=== PATIENT | female | born 1980 | race Caucasian/White ===

== ENCOUNTER 2025-03-11 01:04 | Emergency (ER) | payer OTHER, SELFPAY ==
--- OUTSIDE RECORDS SUMMARY | 2025-03-11 01:07 | XMS_ITS | Clinical Summary ---
Author Organization [facility] Address [address] [place] [id number] Care Team Providers Care Senior Mobile Application Developer Name Role Phone Unknown, Doctor Unavailable Unavailable Sera Richmond MD Primary Care Provide r Allergies Active Allergy Reactions Criticality Noted Date Comments Nsaids (Non-Steroidal Anti-I nflammatory Drug) Anaphylaxis High 08/12/2015 Shellfish Containing Products Anaphylaxis High 02/19 Medications SUMAtriptan (IMITREX) 100 mg tabletIndication s:Migraine without status migrainosus, not intractable, unspecified migraine type Take 1 Tablet (100 mg) by mouth every 2 hours if needed for Migraine. Give at minimum 2hrs apart. Max Dose: 200mg per 24hrs. 9 Tablet 11 4 Active Emgality Pen 120 mg/mL pen INJECT INJECT 120 MG MONTHLY. 4 Active albuterol HFA (PRO-AIR; VENTOLIN; PROVENTIL) 90 mcg/actuation inhalerIndicatio ns:Acute cough,Wheezing Inhale 1-2 Puffs by mouth every 4 hours while awake. 1 Each 4 Active amitriptyline 25 mg tabletIndication s:Migraine without aura and with status migrainosus, not intractable TAKE 1 TABLET BY MOUTH AT BEDTIME 90 Tablet 1 5 Active ondansetron (ZOFRAN) 8 mg tabletIndication s:Obesity (BMI 30.0-34.9) Take 0.5-1 Tablets (4-8 mg) by mouth every 8 hours if needed for Nausea/Vomiting. 30 Tablet 5 Active semaglutide (weight loss) (Wegovy) 0.5 mg/0.5 mL subcutaneous penIndications:O besity (BMI 30.0-34.9) Inject 0.5 mg subcutaneous once weekly. 6 mL 5 Active Active Problems Problem Noted Date Diagnosed Date ASCUS of cervix with negative high risk HPV 10/19 Overview (11/07/2022): 09/2022 ASCUS/ HPV negative Plan: pap/hpv due 09/2025 Allergic rhinitis, cause unspecified 08/01/2007 Overview (08/01/2007): cats, horses, hay, birch trees, fake grass, some fruit, Resolved Problems Problem Noted Date Diagnosed Date Resolved Date , supervision, high -risk, third trimester 01/08/2019 11/19/2023 Decreased movement 09/19/2018 Rh negative state in antepartum period 08/28/2018 11/19/2023 Overview (01/16/2019): Estimated Date of Delivery: None noted. No LMP recorded. Last Tdap- 12/04/2018 Last Flu vaccine- 11/20/2018 Glucose (GTT) result- Component Latest Ref Rng & Units 10/16/2018 GLUCOSE,GESTATIONAL 65 - 139 mg/dL 87 Component Latest Ref Rng & Units 01/08/2019 HEMOGLOBIN 12.0 - 16.0 g/dL 9.6 (L) MCV 80 - 100 fL 86 Culture No Group B Streptococcus isolated. Allergies Allergen Reactions Nsaids (Non-Steroidal Anti-Inflammatory Drug) Anaphylaxis Shellfish Containing Products Anaphylaxis Obstetric History T1 L1 SAB0 TAB0 Ectopic0 Multiple0 Live Births1 # Outcome Date GA Lbr Ric/2nd Weight Sex Delivery Anes PTL Lv 2 1 Term 10/17/16 41w1d M Vag AUDREY Create lab flowsheet for OB labs- Component Latest Ref Rng & Units 06/04/2018 06/04/2018 06/04/2018 3:33 PM 3:33 PM 3:33 PM ANTIBODY SCREEN Negative Negative SPECIMEN EXPIRATION DATE/TIME 06/07/18 23:59 HEMOGLOBIN 12.0 - 16.0 g/dL 12.1 MCV 80 - 100 fL 86 RUBELLA IGG ANTIBODY Positive 4.53 HEMOGLOBIN A1C SCREENING <6.4 % 4.7 ABORH A Rh Negative HBSAG Nonreactive Nonreactive HEPATITIS C ANTIBODY Non-Reactive Non-Reactive HIV-1/HIV-2 ANTIBODY Non-Reactive Non-Reactive TREPONEMA PALLIDUM Negative Negative Past Medical History: Diagnosis Date Allergic rhinitis, cause unspecified cats, horses, hay, birch trees, fake grass Chorioamnionitis, delivered, current hospitalization 10/18/2016 Chronic headaches gets migraines, not during Encounter for supervision of normal first in first trimester 02/20/2016 35 y.o. Family history blood clots - testing of family shows it is not genetic Quad screen BMI:# 26; Recommended weight gain: 25-35 lbs Recent foster parents - 3 kids, 6 mos, 6 year old boy, 9 year old girl Flu vaccine: current, September 2015 FOB: involved, Ousmane Restless legs syndrome (RLS) Third degree laceration of perineum during delivery, 10/18/2016 Vaginal delivery 10/17/2016 Past Surgical History: Procedure Laterality Date APPENDECTOMY TONSILLECTOMY VAGINAL DELIVERY 10/17/2016 No data on file. Problem List No episode was linked to this visit. PANCHO Kyle.....08/29/2018 8:10 AM Supervision of high-risk pre gnancy, second trimester 08/28/2018 01/08/2019 07/25/2018 08/28/2018 Overview (07/25/2018): Estimated Date of Delivery: 02/05/19 Patient's last menstrual period was 04/28/2018 (approximate). Last Tdap- 07/17/2016 Last Flu vaccine- 08/13/2016 Glucose (GTT) result- too early Allergies Allergen Reactions Nsaids (Non-Steroidal Anti-Inflammatory Drug) Anaphylaxis Shellfish Containing Products Anaphylaxis Obstetric History T1 L1 SAB0 TAB0 Ectopic0 Multiple0 Live Births1 # Outcome Date GA Lbr Ric/2nd Weight Sex Delivery Anes PTL Lv 2 Current 1 Term 10/17/16 41w1d M Vag AUDREY Create lab flowsheet for OB labs- Component Latest Ref Rng & Units 06/04/2018 06/04/2018 06/04/2018 3:33 PM 3:33 PM 3:33 PM ANTIBODY SCREEN Negative Negative SPECIMEN EXPIRATION DATE/TIME 06/07/18 23:59 HEMOGLOBIN 12.0 - 16.0 g/dL 12.1 MCV 80 - 100 fL 86 RUBELLA IGG ANTIBODY Positive 4.53 HEMOGLOBIN A1C SCREENING <6.4 % 4.7 ABORH A Rh Negative HBSAG Nonreactive Nonreactive HEPATITIS C ANTIBODY Non-Reactive Non-Reactive HIV-1/HIV-2 ANTIBODY Non-Reactive Non-Reactive TREPONEMA PALLIDUM Negative Negative Past Medical History: Diagnosis Date Allergic rhinitis, cause unspecified cats, horses, hay, birch trees, fake grass Chorioamnionitis, delivered, current hospitalization 10/18/2016 Chronic headaches gets migraines, not during Encounter for supervision of normal first in first trimester 02/20/2016 35 y.o. Family history blood clots - testing of family shows it is not genetic Quad screen BMI:# 26; Recommended weight gain: 25-35 lbs Recent foster parents - 3 kids, 6 mos, 6 year old boy, 9 year old girl Flu vaccine: current, September 2015 FOB: involved, Ousmane Restless legs syndrome (RLS) Third degree laceration of perineum during delivery, 10/18/2016 Vaginal delivery 10/17/2016 Past Surgical History: Procedure Laterality Date APPENDECTOMY TONSILLECTOMY VAGINAL DELIVERY 10/17/2016 No data on file. 2nd Problems (from 06/04/18 to present) No problems associated with this episode. PANCHO Kyle.....07/25/2018 8:33 AM Chorioamnionitis, delivered, current hospitalization 10/18/2016 01/27/2018 Third degree laceration of p erineum during delivery, 10/18/2016 01/27/2018 Vaginal delivery 10/17/2016 01/27/2018 Encounter for supervision of normal first in first trimester 02/20/2016 01/27/2018 Overview (04/23/2016): 35 y.o. Family history blood clots - testing of family shows it is not genetic Quad screen BMI:# 26; Recommended weight gain: 25-35 lbs Recent foster parents - 3 kids, 6 mos, 6 year old boy, 9 year old girl Flu vaccine: current, September 2015 FOB: involved, Ousmane Abdominal pain affecting 01/27/2018 Encounters Date Type Department Care Team Description 02/04/2025 [place] [facility] [place] [address] [place] [address] Betsy Dotson PA Refill Request 01/27/2025 2:20 PM CDT [place] [facility] [place] [address] [place] [address] Betsy Dotson PA Medication Management 01/27/2025 Travel 01/25/2025 Orders Only [facility] Scanner 1 scan: (1-Ord) NORAN 01/13/2025 12:03 PM COOPER APPRENTICE - 01/13/2025 1:54 PM [facility] Emergency [place] [address] [place] [address] Susie Cruz PA Scholz, Ryan Bensley, Right-sided chest pain (Primary Dx); Musculoskeletal chest pain; Pleuritic chest pain Discharge Disposition: Home Self Care 01/13/2025 Travel 01/13/2025 Nurse Triage [facility] [address] [place] [address] Sera Richmond MD Chest Pain from Last 3 Months Immunizations Immunization Administration Dates Next Due Influenza, IIV3 (Age 6-35 mos) 09/25/2015 Influenza, IIV4 11/20/2018,08/13/2016 Tdap 12/04/2018,07/17/2016 Family History Medical History Relation Name Comments Asthma Brother Other Father initial clot d/ t fall; recurrent thereafter; Stroke Father Cancer Maternal Aunt skin ca Cancer-breast Maternal Aunt x2 aunts Diabetes Maternal Grandfather Cancer Maternal Grandmother uterine Arthritis Mother Cancer Mother Thyroid Disease Mother low? Diabetes Paternal Grandfather Cancer Paternal Grandmother Diabetes Paternal Grandmother Genitourinary Disease Paternal Grandmother kidney stones Stroke Paternal Grandmother Good Health Sister Relation Name Status Comments Brother Alive Father Alive Maternal Aunt Maternal Grandfather Maternal Grandmother Mother Alive Paternal Aunt Paternal Grandfather Paternal Grandmother Sister Alive Son Alive Social History Tobacco Use Types Packs/Day Years Used Date Smoking Tobacco: Never Passive Smoke Exposure: Never Smokeless Tobacco: Never Tobacco Cessation:Counseling Given: Not Answered Alcohol Use Standard Drinks/Week Comments Yes 0 (1 standard drink = 0.6 oz pur e alcohol) occasionally PHQ-2 Answer Date Recorded PHQ-2 TOTAL SCORE 0 03/03/2024 Social Connections Answer Date Recorded Do you often feel lonely or isolated from those around you? 0 03/03/2024 Financial Resource Strain Answer Date R ecorded Difficulty of Paying Living Expenses 3 03/03/2024 Difficulty of Paying Living Expenses Not on file 03/03/2024 Food Insecurity Answer Date Recorded Do you worry your food will run out before you are able to buy more? 1 03/03/2024 Transportation Needs Answer Date Record ed Does lack of transportation keep you from medica l appointments? 1 03/03/2024 Does lack of transportation keep you from work, meetings or getting things that you need? 1 03/03/2024 Housing Stability Answer Date Recorded What is your housing situation today? 1 03/03/2024 Interpersonal Safety Answer Date Record ed Are you being hit, kicked, p ushed or yelled at (see row info)? No 01/13/2025 Interpersonal Safety Abuse 12 - 18 Not on file 01/13/2025 Interpersonal Safety Ambulatory Vulnerability No t on file 01/13/2025 Utilities Answer Date Recorded Do you have trouble paying f or utilities (for example, heat, electricity, water, phone)? 1 03/03/2024 Comments No Sex and Gender Information Value Date Recorded Sex Assigned at Not on file Legal Sex Female 7:22 AM COOPER APPRENTICE Gender Identity Not on file Sexual Orientation Not on file Occupation Industry Job Start Date Job End Date [employer] Not on file Not on file Not on file [employer] Not on file Not on file N ot on file Obstetrics History Para Term AB IAB SAB Ectopic Multiple Livin g Live Births 3 2 2 0 0 0 0 0 2 2 Date Outcome GA Total Labor Labor/2nd/3rd Weight Sex Type Anes PTL Audrey A1 A5 Name Clin 10/17 Term 41w 1d M Vag Living 01/27 Term 38w 5d 5.19 kg (11 lb 7 oz) M C-Sec tion Spinal N Living Last Filed Vital Signs Vital Sign Reading Time Taken Comments Blood Pressure 109/72 01/27/2025 2:22 PM CDT Pulse 77 01/27/2025 2:22 PM CDT Temperature 37 C (98.6 F) 01/13/2025 10:07 AM COOPER APPRENTICE Respiratory Rate 16 01/13/2025 10:07 AM COOPER APPRENTICE Oxygen Saturation 100% 01/13/2025 12:25 PM COOPER APPRENTICE Inhaled Oxygen Concentration - - Weight 76.2 kg (168 lb) 01/27/2025 2:22 PM CDT Height 162.6 cm (5' 4) 01/13/2025 10:07 AM COOPER APPRENTICE Body Mass Index 28.84 01/13/2025 10:07 AM COOPER APPRENTICE Plan of Treatment Health Maintenance Due Date Last Done Comments COVID-19 vaccine series ( season) 2024 Depression screening for age 12+ 03/03/2025 03/03/2024, 12/28/2022, 10/12/2022, Additional history exists Influenza Vaccine (Season Ended) 2025 11/20/2018, 08/13/2016, 09/25/2015 BMI (ht and wt on same day) for age 18+ 10/06/2025 10/06/2024, 11/19/2023, 08/09/2023, Additional history exists Pap test for age 21-65 10/12/2025 , 10/12/2022, 12/06/2016, Additional history exists Tetanus booster 12/04/2028 12/04/2018, 07/17/2016 HIV for age 15-65 Completed 06/04/2018, 02/20/2016 Hepatitis C screening for age 18-79 Completed 06/04/2018 Tdap Completed 12/04/2018, 07/17/2016 Pneumococcal series for age 6-49 Aged Out No longer eligible based on patient's age to complete this topic Procedures Procedure Name Priority Date/Time Associated Diagnosis Comments SCAN-ELECTROMYOGRAM EMG 01/25/2025 12:00 AM CDT XR CHEST 2 VIEWS PA AND LATERAL STAT 01/13/2025 1:24 PM COOPER APPRENTICE HEPATIC FUNCTION PANEL STAT 01/13/2025 12:31 PM COOPER APPRENTICE PRO-BNP STAT 01/13/2025 12:31 PM COOPER APPRENTICE D-DIMER,QUANTITATIV E STAT 01/13/2025 12:31 PM COOPER APPRENTICE TROPONIN T (HS) ACUTE W/2HR REFLEX STAT 01/13/2025 12:31 PM COOPER APPRENTICE BASIC METABOLIC PANEL STAT 01/13/2025 12:31 PM COOPER APPRENTICE CBC W PLT NO DIFF STAT 01/13/2025 12: 31 PM COOPER APPRENTICE EKG 12 LEAD STAT 01/13/2025 10:11 AM COOPER APPRENTICE HPV HIGH RISK Routine 10/12/2022 11:00 AM COOPER APPRENTICE Screening for cervical cancer ANTI HIV 1/2 Routine 06/04/2018 3:33 PM CDT Encounter for supervision of normal first in first trimester (HC) ANTI HCV Routine 06/04/2018 3:33 PM CDT Encounter for supervision of normal first in first trimester (HC) from Last 3 Months or Most Recently Relevant to Health Maintenance Results * SCAN-ELECTROMYOGRAM EMG (01/25/2025 12:00 AM CDT) us Scanner OTHER Final Result * XR CHEST 2 VIEWS PA AND LATERAL (01/13/2025 1:24 PM COOPER APPRENTICE) Anatomical Region Laterality Modality CHEST, THORAX, Lung, HEART Compu steff Radiography 01/13/2025 1:24 PM COOPER APPRENTICE Impressions 01/13/2025 1:29 PM COOPER APPRENTICE Negative chest. Lungs clear. Narrative 01/13/2025 1:29 PM COOPER APPRENTICE For Patients: As a result of the Century Cures Act, medical imaging exams and procedure reports are released immediately into your electronic medical record. You may view this report before your referring provider. If you have questions, please contact your health care provider. EXAM: XR CHEST 2 VIEWS PA AND LATERAL LOCATION: [facility] MEDICAL IMAGING DATE: 01/13/2025 INDICATION: SOB. Chest pain. COMPARISON: 11/23/2021 Procedure Note Darien Aaron MD - 01/13/2025 For Patients: As a result of the Cures Act, medical imagingexams and procedure reports are released immediately into your electronicmedical record. You may view this report before your referring provider.If you have questions, please contact your health care provider. EXAM: XR CHEST 2 VIEWS PA AND LATERAL LOCATION: [facility] MEDICAL IMAGING DATE: 01/13/2025 INDICATION: SOB. Chest pain. COMPARISON: 11/23/2021 IMPRESSION: Negative chest. Lungs clear. us Susie CHUNG GENERAL IMAGING Final R esult * TROPONIN T (HS) ACUTE W/2HR REFLEX (01/13/2025 12:31 PM COOPER APPRENTICE) TROPONIN T HS <6 6-10 ng/L ng/L 01/13/2025 1:16 PM COOPER APPRENTICE [facility] Blood BLOOD SPECIMEN / Unknown IV Start / Unknown 01/13/2025 12:31 PM COOPER APPRENTICE 01/13/2025 12:35 PM COOPER APPRENTICE [facility] LABORATORY - 01/13/2025 1:16 PM COOPER APPRENTICE hs-cTnT (Elecsys Troponin T Gen 5) concentration (s) above the sex-specific 99th percentile (16 ng/L or greater for males or 11 ng/L or greater for females) are indicative of myocardial injury. If initial hs-cTnT <=100 ng/L at presentation, a 0h/2h ABSOLUTE (ng/L) delta change (rising or falling) of >=10 ng/L suggests a significant change, whereas a 0h/2h delta change <=3 ng/L suggests no significant change. If initial hs-cTnT >100 ng/L at presentation, a 0h/2h/ RELATIVE (percent, %) delta change of 20% is suggested to distinguish patients with acute vs. chronic myocardial injury. There are multiple etiologies that can cause hs-cTnT increases above the 99th percentile (myocardial injury) other than acute myocardial infarction. Clinical context and careful clinical evaluation are critical for diagnosis and risk-stratification. The diagnosis of acute myocardial infarction requires a rising and/or falling pattern in hs-cTnT concentrations with at least one value above the sex-specific 99th percentile PLUS at least one of the following clinical criteria: ischemic symptoms, new or presumed new significant ST-T wave changes or new LBBB, development of pathological Q waves, imaging evidence of new loss of viable myocardium or new regional wall motion abnormality, or identification of intracoronary atherothrombosis or an acute angiographic culprit on coronary angiography. In appropriate low-risk patients with a non-ischemic electrocardiogram without active chest pain with a symptom onset >3-hours without recurrence, a single initial hs-cTnT<6 ng/L identifies patient with a very low risk in emergency department patient population. us Susie CHUNG CHEMISTRY Final R esult [facility] INTERNAL [facility] [address] [place] [address] * CBC W PLT NO DIFF (01/13/2025 12:31 PM [facility]) WHITE BLOOD COUNT 6.8 4.5 - 11.0 thou/cu mm 01/13/2025 12:39 PM [facility] RED BLOOD COUNT 4.96 4.00 - 5.20 mil/cu mm 01/13/2025 12:39 PM [facility] HEMOGLOBIN 14.0 12.0 - 16.0 g/dL 01/13/2025 12:39 PM [facility] HEMATOCRIT 40.3 33.0 - 51.0 % 01/13/2025 12:39 PM [facility] MCV 81 80 - 100 fL 01/13/2025 12:39 PM [facility] MCH 28.2 26.0 - 34.0 pg 01/13/2025 12:39 PM [facility] MCHC 34.7 32.0 - 36.0 g/dL 01/13/2025 12:39 PM [facility] RDW 13.2 11.5 - 15.5 % 01/13/2025 12:39 PM [facility] PLATELET COUNT 320 140 - 440 thou/cu mm 01/13/2025 12:39 PM [facility] MPV 9.9 6.5 - 11.0 fL 01/13/2025 12:39 PM COOPER APPRENTICE [facility] NRBC 0.0 % 01/13/2025 12:39 PM COOPER APPRENTICE [facility] ABS NRBC 0.0 thou /cu mm 01/13/2025 12:39 PM [facility] Blood BLOOD SPECIMEN / Unknown IV Start / Unknown 01/13/2025 12:31 PM COOPER APPRENTICE 01/13/2025 12:35 PM [facility] LABORATORY - 01/13/2025 12:39 PM COOPER APPRENTICE RN to order if patient presents with anterior chest pain, consistent with angina. Susie CHUNG HEMATOLOGY Final R esult Performing Organization Address City/[facility]/ZIP Co de Phone Number [facility] INTERNAL [facility] [id number] [place] [phone] * D-DIMER,QUANTITATIVE (01/13/2025 12:31 PM COOPER APPRENTICE) D-DIMER,QUANTI TATIVE 0.23 <=0.49 FEU mcg/mL 01/13/2025 12:46 PM [facility] Blood BLOOD SPECIMEN / Unknown IV Start / Unknown 01/13/2025 12:31 PM COOPER APPRENTICE 01/13/2025 12:35 PM [facility] LABORATORY - 01/13/2025 12:46 PM COOPER APPRENTICE The cut off value for exclusion of Deep Vein Thrombosis and / or Pulmonary Embolism is 0.50 FEU mcg/mL For patients greater than 50 years of age the upper limit is age dependent and was calculated with the formula: (PATIENT AGE x 0.01) FEU mcg/mL = Upper limit of normal range Susie CHUNG HEMATOLOGY Final R esult Performing Organization Address [facility]/ZIP Co de Phone Number [facility] SEND[facility] INTERNAL ZIP [id number] [place] [phone] * PRO-BNP (01/13/2025 12:31 PM COOPER APPRENTICE) PRO-BNP <36 <125 pg/mL 01/13/2025 1:16 PM [facility] Blood BLOOD SPECIMEN / Unknown IV Start / Unknown 01/13/2025 12:31 PM COOPER APPRENTICE 01/13/2025 12:35 PM COOPER APPRENTICE [facility] LABORATORY - 01/13/2025 1:16 PM COOPER APPRENTICE The following cut-points have been suggested for the use of proBNP for the diagnostic evaluation of heart failure (HF) in patient with acute dyspnea. Patients with eGFR >= 60 Diagnosis (rule in CHF) <50 Years Old 450 pg/mL 50 - 75 Years Old 900 pg/mL >75 Years Old 1800 pg/mL Exclusion (rule out CHF) Age Independent 300 pg/mL A cutoff of 1200 pg/mL for patients with an eGFR <60 yields a diagnostic sensitivity of 89% and specificity of 72% for acute congestive heart failure. us Susie CHUNG SEND OUTS Final R esult [facility] SENDOUT INTERNAL ZIP [id number] [place] [phone] * (ABNORMAL) HEPATIC FUNCTION PANEL (01/13/2025 12:31 PM COOPER APPRENTICE) ALBUMIN 4.7 4.0 - 4.9 g/dL 01/13/2025 1:16 PM [facility] PROTEIN,TOTAL 8.2(H) 6.0 - 8.0 g/dL 01/13/2025 1:16 PM [facility] BILIRUBIN,TOTAL 0.6 0.0 - 1.2 mg/dL 01/13/2025 1:16 PM [facility] BILIRUBIN,DIRECT 0.2 0.0 - 0.2 mg/dL 01/13/2025 1:16 PM [facility] BILIRUBIN,INDIRE CT 0.4 0.2 - 0.8 mg/dL 01/13/2025 1:16 PM [facility] ALK PHOSPHATASE 56 35 - 104 IU/L 01/13/2025 1:16 PM [facility] ALT (SGPT) 6(L) 10 - 35 IU/L 01/13/2025 1:16 PM [facility] AST (SGOT) 14 10 - 35 IU/L 01/13/2025 1:16 PM [facility] Blood BLOOD SPECIMEN / Unknown IV Start / Unknown 01/13/2025 12:31 PM COOPER APPRENTICE 01/13/2025 12:35 PM [facility] us Susie CHUNG CHEMISTRY Final R esult [facility] SENDOUT INTERNAL ZIP [id number] [place] [phone] * BASIC METABOLIC PANEL (01/13/2025 12:31 PM [facility]) SODIUM 137 136 - 145 mmol/L 01/13/2025 1:16 PM [facility] POTASSIUM 4.1 3.5 - 5.1 mmol/L 01/13/2025 1:16 PM [facility] CHLORIDE 101 98 - 107 mmol/L 01/13/2025 1:16 PM [facility] CO2,TOTAL 26 22 - 29 mmol/L 01/13/2025 1:16 PM [facility] ANION GAP 10 5 - 18 01/13/2025 1:16 PM [facility] GLUCOSE 99 70 - 99 mg/dL 01/13/2025 1:16 PM [facility] CALCIUM 9.6 8.8 - 10.4 mg/dL 01/13/2025 1:16 PM [facility] Comment: Reference ranges for this test were updated on 09/22/2024 to reflect our healthy population more accurately. Reference range changes are not retroactively applied to results, but previous results using the same methodology can be interpreted in the context of the new reference range. BUN 10 6 - 20 mg/dL 01/13/2025 1:16 PM [facility] CREATININE 0.70 0.50 - 0.90 mg/dL 01/13/2025 1:16 PM [facility] BUN/CREAT RATIO 14 10 - 20 1:16 PM COOPER APPRENTICE [facility] eGFR >90 >90 mL/min/1.7 3m2 01/13/2025 1:16 PM COOPER APPRENTICE [facility] Comment:As of 2022, eG FR is calculated by the CKD-EPI creatinine equation without race adjustment. eGFR can be influenced by muscle mass, exercise, and diet. The reported eGFR is an estimation only and is only applicable if the renal function is stable. Blood BLOOD SPECIMEN / Unknown IV Start / Unknown 01/13/2025 12:31 PM COOPER APPRENTICE 01/13/2025 12:35 PM COOPER APPRENTICE Susie CHUNG CHEMISTRY Final R esult Performing Organization Address City/[facility]/ZIP Co de Phone Number [facility] SENDOUT INTERNAL ZIP [id number] [place] [phone] * EKG 12 LEAD (01/13/2025 10:11 AM COOPER APPRENTICE) Interpretation Normal sinus rhythm Nonspecific T wave abnormality Abnormal ECG BEYOND NOW Ventricular Rate 82 BPM BEYOND NOW Atrial Rate 82 BPM BEYOND NOW P-R Interval 158 ms BEYOND NOW QRS Duration 74 ms BEYOND NOW QT 324 ms BEYOND NOW QTc 378 ms BEYOND NOW P [place] 48 degrees BEYOND NOW R [place] 10 degrees BEYOND NOW T Dan[place] 29 degrees BEYOND NOW 01/13/2025 10:1 1 AM COOPER APPRENTICE 01/14/2025 10:32 AM COOPER APPRENTICE Susie CHUNG EKG ORD Final R esult Performing Organization Address City/[facility]/ZIP Co de Phone Number BEYOND NOW [place], [place] * HPV HIGH RISK (10/12/2022 11:00 AM COOPER APPRENTICE) TYPE 16 Negative Negative 10/17/2022 11:08 AM COOPER APPRENTICE [facility] [facility] TYPE 18 Negative Negative 10/17/2022 11:08 AM COOPER APPRENTICE [facility] OTHER HIGH RISK TYPES Negative Negative 10/17/2022 11:08 AM COOPER APPRENTICE [facility] Other (Cervical) Non-Blood / Unknown 10/12/2022 11:00 AM COOPER APPRENTICE 10/15/2022 9:10 AM COOPER APPRENTICE Narrative [facility] - 10/17/2022 11:08 AM COOPER APPRENTICE HPV types 16, 18, 31, 33, 35, 39, 45, 51, 52, 56, 58, 59, 66 and 68 DNA were undetectable or below the pre-set threshold. Methodology: Rosario Jose Alfredo 4800 HPV Test Sera Richmond MD MICROBIOLOGY Final Result [facility] [address] [place] [address], [place] * ANTI HCV (06/04/2018 3:33 PM CDT) HEPATITIS C ANTIBODY Non-React tootie Non-React tootie 06/04/2018 9:01 PM CDT [facility] Comment:Antibodies to HCV no t detected; does not exclude the possibility of exposure to HCV. Blood BLOOD SPECIMEN / Unknown Venipuncture / Unknown 06/04/2018 3:33 PM CDT 06/04/2018 3:33 PM CDT Chacha CHUNG SEND OUTS Final R esult Performing Organization Address City/[facility]/ZIP Co de Phone Number [facility] [address] [place] [address], [place] * ANTI HIV 1/2 (06/04/2018 3:33 PM CDT) Pathologist [facility] HIV-1/HIV-2 ANTIBODY Non-Reacti ve Non-Reacti ve 06/04/2018 9:03 PM CDT [facility] Comment:HIV-1 p24 and HIV-1/ HIV-2 Ab not detected. Blood BLOOD SPECIMEN / Unknown Venipuncture / Unknown 06/04/2018 3:33 PM CDT 06/04/2018 3:33 PM CDT Chacha CHUNG SEND OUTS Final R esult [facility] [address] [place] [address], from Last 3 Months or Most Recently Relevant to Health Maintenance Insurance [employer] ELECT WC [employer] INS [employer] INS Advance Directives * Full Code (Latest Code Status on File) Date Activated Date Inactivated Comments 10/17/2016 11:45 AM 10/19/2016 2:24 PM * Full Code Date Activated Date Inactivated Comments 10/16/2016 5:58 PM 10/17/2016 11:45 AM * Full Code Date Activated Date Inactivated Comments 10/16/2016 9:40 AM 10/16/2016 5:58 PM * Full Code Date Activated Date Inactivated Comments 10/16/2016 8:50 AM 10/16/2016 9:40 AM * Full Code Date Activated Date Inactivated Comments 10/03/2016 11:02 PM 10/04/2016 3:03 AM Care Teams Senior Mobile Application Developer Relationship Specialty Start Date End Date Sera Richmond MD [address] [place] [address] PCP - General Family Practice 12/18/18 Unknown, Doctor . Unknown Physician Specialty 08/12/15
--- OUTSIDE RECORDS SUMMARY | 2025-03-11 01:08 | XMS_ITS | Clinical Summary ---
Author Organization [place] Address [address] [facility] 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 Name Role Phone No Ref-Primary, Physician Primary Care Provider Allergies Active Allergy Reactions Criticality Noted Date Comments Nsaids 01/27/2019 Shellfish-Derived Products Anaphylaxis High 01/28/20 19 Medications Ferrous Sulfate 324 (65 Fe) MG TBEC Active SUMAtriptan (IMITREX) 50 MG tablet Take 50 mg by mouth at onset of headache for migraine Active Vit-Fe Fumarate-FA ( MULTIVITAMIN W/IRON) 27-0.8 MG tablet Take 1 tablet by mouth daily Active oxyCODONE (ROXICODONE) 5 MG tabletIndication s: care following delivery Take 1-2 tablets (5-10 mg) by mouth every 3 hours as needed for moderate to severe pain 20 tablet 9 Active senna-docusate (SENOKOT-S/PERIC OLACE) 8.6-50 MG tabletIndication s: care following delivery Take 1 tablet by mouth 2 times daily as needed for constipation 60 tablet 9 Active Active Problems Problem Noted Date Diagnosed Date care following delivery 01/16 Immunizations Name Administration Dates Next Due Influenza (IIV3) PF 09/25/2015 Influenza Vaccine >6 months,quad, PF 08/13/2016 TDAP Vaccine (Boostrix) 12/04/2018,07/17/2016 Family History Medical History Relation Comments Cerebrovascular Disease Father BLOOD CL OTS Diabetes Maternal Grandfather Hyperlipidemia Maternal Grandfather Kidney Disease Maternal Grandfather Cancer Maternal Grandmother OVARIAN Cancer Mother SKIN Relation Status Comments Father Maternal Grandfather Maternal Grandmother Mother Social History Tobacco Use Types Packs/Day Years Used Date Smoking Tobacco: Never Smokeless Tobacco: Never Alcohol Use Standard Drinks/Week Comments No 0 (1 standard drink = 0.6 oz pur e alcohol) AUDIT-C Answer Date Recorded Frequency of Alcohol Consumption Never 01/27/2019 Average Number of Drinks Not on file 019 Frequency of Binge Drinking Not on file 01/16 [place] Depression Scale Answer Date Recorded [place] Depression Score 3 01/28/2019 Last EPDS Self Harm Result Not on file 01/28 Comments No Sex and Gender Information Value Date Recorded Sex Assigned at Not on file Legal Sex Female 2:26 PM CDT Gender Identity Not on file Sexual Orientation Not on file Last Filed Vital Signs Vital Sign Reading Time Taken Comments Blood Pressure 110/68 01/31/2019 8:05 AM CDT Pulse - - Temperature 36.7 C (98.1 F) 01/31/2019 8:05 AM CDT Respiratory Rate 18 01/31/2019 8:05 AM CDT Oxygen Saturation 97% 01/28/2019 7:57 AM CDT Inhaled Oxygen Concentration - - Weight - - Height - - Body Mass Index - - Plan of Treatment Not on file Insurance [place] [id number] [employer] Care Teams Bulb Farmworker Relationship Specialty Start Date End Date No Ref-Primary, Physician PCP - General 01/28/19
[2025-03-11 01:16] VITALS: BP 117/83; PULSE 74; RESP 18; TEMP 36.3; O2SAT 98; BMI 29.2
[2025-03-11 01:35] LABS: Bilirubin Urine Negative (Negative); Blood Urine Trace-intact (Negative); Color Urine Yellow (Yellow); Glucose Urine Negative (Negative); Ketones Urine Negative (Negative); Leukocyte Esterase Urine Negative (Negative); Nitrite Urine Negative (Negative); Protein Urine Negative (Negative); Urobilinogen Urine 0.2 (0.2-1.0)
[2025-03-11 01:37] LABS: Ur HCG Qualitative* Negative (Negative)
--- NOTE | 2025-03-11 01:37 | CRLHL7_ITS ---
For Patients: As a result of the Century Cures Act, medical imaging exams and procedure reports are released immediately into your electronic medical record. You may view this report before your referring provider. If you have questions, please contact your health care provider. INDICATION: Upper abdominal pain that radiates to the back off and on for approximately 1 week, nausea/vomiting. TECHNIQUE: CT abdomen and pelvis acquired with 83 cc Isovue 370 IV contrast. COMPARISON: None. FINDINGS: Lower chest: Unremarkable. Liver: Mild periportal edema. Normal in size and attenuation. No suspicious masses. Gallbladder and bile ducts: Possible cholelithiasis. No biliary dilatation. Pancreas: Unremarkable. No mass or inflammation. Spleen: Splenule. Normal in size. No masses. Adrenal glands: Unremarkable. No nodules. Kidneys: 2 mm right calcified nonobstructive renal stone. No suspicious masses, obstructive stones, or hydronephrosis. GI tract: Unremarkable. Normal in caliber. No sign of mass or inflammation. No secondary signs of appendicitis. Vasculature: Abdominal aorta is normal in caliber. Mesenteric arteries are patent. Lymph nodes: No lymphadenopathy. Peritoneum/Abdominal Wall: Unremarkable. No sign of mass or infiltration. No free air or significant free fluid. Pelvis: Bladder is unremarkable. Reproductive organs are unremarkable. Bones: Unremarkable for age. IMPRESSION: No acute findings to explain the patient`s symptoms. Please note that all CT scans at this facility use dose modulation, iterative reconstruction, and/or weight-based dosing when appropriate to reduce radiation dose to as low as reasonably achievable. Dictated by Дмитрий Chavez MD @ 03/11/2025 2:32:52 AM (Electronically Signed)
[2025-03-11 01:41] LABS: Amorphous Sediment Urine Many; Appearance Urine Cloudy (Clear); Bacteria Urine Moderate; Mucus Urine Few; RBC Urine 0-2 (0-2); Squamous Epithelial Cell Urine Few (None-Few); WBC Urine 0-2 (0-5)
[2025-03-11 01:44] VITALS: O2SAT 96
--- NOTE | 2025-03-11 01:44 | ED_ITS ---
HPI - General Adult General Chief complaint: Abdominal Pain Stated complaint: Abdominal pain Time Seen by Provider: 03/11/25 01:28 Source: patient and family Mode of arrival: ambulatory History of Present Illness HPI narrative: 44-year-old female presents the ED with pain in the epigastric region radiating to the right upper and left upper abdomen and radiating around to the back. This is been happening intermittently over the past week. Not accompanied by nausea or vomiting. No diarrhea, no bloody stools. No trauma or injury. No history of pancreatitis or significant alcohol use. Pain worsen tonight at around 11:00 p.m., 2-1/2 hours prior to arrival. Patient was unable to get the pain under control though she did not try any interventions like [id number] pain medication, antacids, etc.. Denies fever, denies dysuria. No hematuria. No history of kidney stones. Does have a history of prior abdominal surgeries with a prior and prior appendectomy. She has no personal history of heart disease. No history DVT or PE. Reports benign past medical history, no long-term medications. Allergy to NSAIDs. History of migraines, uses amitriptyline prophylactically nightly and has prescription for sumatriptan. ROS is notable for the abdominal symptoms as above, otherwise denies times 12 systems. Nonsmoker. Related Data Home Medications ?Medication ?Instructions ?Recorded ?Confirmed acetaminophen 325 mg tablet 325 - 650 mg PO Q6H PRN pain 03/11/25 03/11/25 amitriptyline 25 mg tablet 25 mg PO QPM 03/11/25 03/11/25 ondansetron HCl 8 mg tablet 4 - 8 mg PO Q8H PRN nausea/vomiting 03/11/25 03/11/25 sumatriptan succinate 100 mg tablet 100 mg PO DIRECTED 03/11/25 03/11/25 Allergies Allergy/AdvReac Type Severity Reaction Status Date / Time NSAIDS (Non-Steroidal Allergy Severe Anaphylaxis Verified 03/11/25 01:22 [facility]amma [facility] Social History Smoking Status: Never smoker How often do you have a drink containing alcohol: never AUDIT-C Alcohol total score: 0 Non-prescribed substance use: denies use Exam Const: Vital Signs, click to edit/add: Vital Signs - 24 hr 03/11/25 01:16 03/11/25 01:44 03/11/25 02:55 Temperature 97.3 F L 97.6 F Pulse Rate [Left P ulse Oximeter] 74 72 Respiratory Rate 18 18 Blood Pressure [Ri ght Upper Arm] 117/83 109/74 Pulse Oximetry 98 96 99 Oxygen Delivery Me thod Room Air Room Air Documenting provider has reviewed patient's vital signs: yes Common normals: no apparent distress and alert General appearance: cooperative and well kempt HENMT: Common normals: normocephalic, moist oral mucous membranes and oropharynx normal Head and scalp: normocephalic Face and sinus: normal facial exam Eye: Common normals: conjunctivae normal General eye: normal appearance of both eyes Conjunctiva: conjunctiva(e) normal Neck & C-Spine: Common normals: no lymphadenopathy General: normal visual inspection Resp: Common normals: normal respiratory effort, no use of accessory muscles and clear to auscultation bilaterally Effort & inspection: able to speak in complete sentences Auscultation: clear to auscultation bilaterally Cardio: Common normals: regular rate, regular rhythm, S1 normal heart sound, S2 normal heart sound and no murmurs Rate: regular rate Rhythm: regular rhythm Heart sounds: S1 normal and S2 normal GI: Common normals: Normal to inspection, nondistended, normoactive bowel sounds present, soft to palpation, no hepatosplenomegaly and no masses Palpation: soft and no hepatosplenomegaly Other: Diffusely tender but it does seem to localize into the epigastric region. Did partially localize in the right upper quadrant as well but the exam was not fully reproducible. No CVA tenderness. : Common normals: no CVA tenderness Bladder/kidney exam: no CVA tenderness Back & Pelvis: Common normals: no CVA tenderness Lumbar spine/lower back: normal to inspection Neuro: Common normals: moves all extremities Sensorium/orientation: alert Gait (neuro): normal gait Psych: Appearance: well kempt Attitude: engaged Activity/motor behavior: appropriate eye contact Mood and affect: euthymic mood Insight: insight good Judgement: judgment good Skin: Common normals: no rashes or lesions noted General skin exam: no rashes or lesions noted Course Course ED Course: 44-year-old female with abdominal pain, initially waxing and waning and now more persistent suspicious for gallbladder disease. Cannot exclude pancreatitis, bowel obstruction, inflammatory bowel disease, gastroenteritis, musculoskeletal pain, cardiac process, pulmonary process, GERD, hiatal hernia, amongst others. Will give Zofran, Protonix and Dilaudid. Urinalysis and test. Typical intra-abdominal labs and CT of the abdomen and pelvis. I do not have ultrasound readily available this time of night, consider holding patient in ED till morning hours if indicated and CT is nondiagnostic. Reevaluation(s) Time of Reevaluation #1: 02:40 Reevaluation #1: All normal lab results and normal CT reviewed with patient. I still think this potentially could be biliary dyskinesia. Pain initially improved with Dilaudid but is worsening again. Try transitioning her to oral medications. Hydrocodone ordered. Unfortunately will need to call in ultrasound provider. Right upper quadrant ultrasound ordered. Remains afebrile with stable vital signs. Time of Reevaluation #2: 04:05 Reevaluation #2: Reviewed ultrasound findings with patient. Pain is more tolerable now with the oral pain medicines though not completely relieved. She has had no further bouts of vomiting since anti nausea medicines were given. I do suspect that this is biliary dyskinesia even other is 1 medium stone noted on ultrasound. It is not at the gallbladder neck it is unlikely be the source of her symptoms. Counseled patient that these episodes can be somewhat unpredictable and that can be especially frustrating. I have recommended she make follow-up 1 with her primary care doctor to discuss getting a HIDA scan and then based on the results, consideration of a surgical consult. Alarm symptoms reviewed that would warrant ED presentation including fevers, sharp localized pain, persistent nausea and vomiting. Prescriptions for Zofran and hydrocodone given for mild repeat episodes. Written instructions provided. She verbalizes understanding and agreement. Vital Signs Vital signs: Initial Vital Signs Temperature 97.3 F L 03/11/25 01:16 Temperature Source Temporal Artery Scan 03/11/25 01:16 Pulse Rate 74 03/11/25 01:16 Respiratory Rate 18 03/11/25 01:16 Blood Pressure 117/83 03/11/25 01:16 Blood Pressure Mean 94 03/11/25 01:16 Blood Pressure Position Sitting 03/11/25 01:16 Pulse Oximetry 98 03/11/25 01:16 Oxygen Delivery Method Room Air 03/11/25 01:16 Vital Signs Temperature 97.3 F L 03/11/25 01:16 Pulse Rate 74 03/11/25 01:16 Respiratory Rate 18 03/11/25 01:16 Blood Pressure 117/83 03/11/25 01:16 Pulse Oximetry 98 03/11/25 01:16 Oxygen Delivery Method Room Air 03/11/25 01:16 Temperature 97.6 F 03/11/25 02:55 Pulse Rate 72 03/11/25 02:55 Respiratory Rate 18 03/11/25 02:55 Blood Pressure 109/74 03/11/25 02:55 Pulse Oximetry 99 03/11/25 02:55 Oxygen Delivery Method Room Air 03/11/25 02:55 Medications Administered Medications: Discontinued Medications Generic Name Dose Route Start Last Admin Trade Name Freq PRN Reason Stop Dose Admin Hydrocodone Bitart/Acetaminophen 2 tab 03/11/25 02:35 03/11/25 02:45 Hydrocodone-Acetamin 5-325 Mg 1 Tab PO 03/11/25 02:36 2 tab ONCE ONE Administration Hydromorphone HCl 0.5 mg 03/11/25 01:37 03/11/25 01:53 Hydromorphone 0.5 Mg/0.5 Ml Inj IVP 03/11/25 01:38 0.5 mg ONCE ONE Administration Ondansetron HCl 4 mg 03/11/25 01:37 03/11/25 01:53 Ondansetron 2 Mg/Ml Inj IVP 03/11/25 01:38 4 mg ONCE ONE Administration Pantoprazole Sodium 40 mg 03/11/25 01:48 03/11/25 02:09 Pantoprazole Sodium 40 Mg Inj IVP 03/11/25 01:49 40 mg ONCE ONE Administration Medical Decision Making Lab Data Lab results reviewed: Yes I reviewed the patient's lab results Lab results narrative: Labs reassuring. No signs of infection, inflammation, urinary infection, elevated CRP, pancreatitis or biliary obstruction. Labs: Lab Results 03/11/25 03/11/25 Range/Units 01:29 01:47 WBC 7.18 (4.50-11.00) K/uL RBC 4.46 (4.00-5.20) m/uL Hgb 12.5 (12.0-16.0) gm/dL Hct 38.0 (33.0-51.0) % MCV 85 (80-100) fL MCH 28 (26-34) pg MCHC 33 (32-36) gm/dL RDW Coeff of Daniel 13.2 (11.5-15.5) % Plt Count 290 (140-440) K/uL Neut % (Auto) 65.2 (42.0-72.0) % Lymph % (Auto) 24.4 (20-44) % [place] % (Auto) 6.8 (0.0-11.0) % Eos % (Auto) 1.8 (0.0-7.0) % Baso % (Auto) 1.0 (0.0-3.0) % Neut # (Auto) 4.68 (1.7-7.0) K/uL Lymph # (Auto) 1.75 (0.90-2.90) K/uL [place] # (Auto) 0.50 (0.00-0.90) K/UL Eos # (Auto) 0.13 (0.00-0.50) K/uL Baso # (Auto) 0.07 (0.00-0.30) K/uL Abs Immat Gran (auto) 0.06 (0.00-0.30) K/uL Imm/Tot Granulo (auto) 0.8 % Sodium 139 (135-149) mmol/L Potassium 3.7 (3.6-5.1) mmol/L Chloride 103 (96-114) mmol/L Carbon Dioxide 28 (20-32) mmol/L Anion Gap 8 (7-15) mEq/L BUN 14 (5-24) mg/dL Creatinine 0.7 (0.5-1.5) mg/dL Estimated Creat Clear 90.41 Estimated GFR 111 ml/min Glucose 103 (60-115) mg/dL Lactate 0.6 (0.5-1.9) mmol/L Calcium 9.5 (8.4-10.6) mg/dL Total Bilirubin 0.5 (0.1-1.5) mg/dL AST 21 (12-35) U/L ALT 11 (4-35) U/L Alkaline Phosphatase 44 (40-150) U/L C-Reactive Protein < 0.5 L (0.5-1.0) mg/dL Total Protein 7.2 (6.0-8.3) g/dL Albumin 4.4 (3.3-5.0) g/dL Lipase 162 (23-300) U/L Urine Color Yellow (Yellow) Urine Appearance Cloudy A (Clear) Urine pH 7.0 (5.0-8.5) Ur Specific [place] 1.020 (1.000-1.030) Urine Protein Negative (Negative) Urine Glucose (UA) Negative (Negative) Urine Ketones Negative (Negative) Urine Blood Trace-intact A (Negative) Urine Nitrite Negative (Negative) Urine Bilirubin Negative (Negative) Urine Urobilinogen 0.2 (0.2-1.0) Ur Leukocyte Esterase Negative (Negative) Urine RBC 0-2 (0-2) Urine WBC 0-2 (0-5) Ur Squamous Epith Cells Few (None-Few) Amorphous Sediment Many A (None) Urine Bacteria Moderate A (None) Urine Mucus Few A (None) Urine HCG, Qual Negative (Negative) Imaging Data CT scan - abdomen: Attestation: I have reviewed the pertinent imaging results. My impression: Normal appearing CT Radiologist's impression: IMPRESSION: No acute findings to explain the patient`s symptoms. Please note that all CT scans at this facility use dose modulation, iterative reconstruction, and/or weight-based dosing when appropriate to reduce radiation dose to as low as reasonably achievable. Dictated by Дмитрий Chavez MD @ 03/11/2025 2:32:52 AM US - abdomen: Attestation: I have reviewed the pertinent imaging results. My impression: Gallstone but no signs of wall thickening. Gallstone is not obstructing. Radiologist's impression: IMPRESSION: Cholelithiasis, but no sonographically apparent inflammatory changes to suggest acute cholecystitis. Dictated by Дмитрий Chavez MD @ 03/11/2025 3:42:01 AM (Electronically Signed) ECG Data Attestation: I personally reviewed and interpreted this ECG as follows: Prior ECG tracings: not available for review Interpretation: Sinus rhythm, rate of 70. Normal intervals and axis. No significant ST or T- wave abnormalities. Good R-wave progression. Normal EKG. Discharge Plan Discharge Clinical Impression: Biliary dyskinesia Patient Disposition: Home w/ Parent or Adult Condition: Improved Instructions: Biliary Colic (ED) Additional Instructions: As we discussed, there are no signs of pancreatitis, gallbladder obstruction, inflammation in your belly or any other dangerous condition. Your gallbladder looks normal on CT. The ultrasound shows a small gallstone but not 1 that is in the neck or ducts of the gallbladder that would explain your symptoms today. It is very common to have gallstones but yours does not look to be inflamed at this time. I suspect that your having an episode of biliary dyskinesia. This is a flare up and malfunction of the gallbladder but is thankfully not associated with infection or any dangerous condition. These episodes can be recurrent unfortunately. A better test would be something called a HIDA scan. These are performed once a week and half to be ordered a couple of days in advance to have the special nuclear material in stock. I would recommend that you make a follow-up appointment with her primary care doctor in a few days. If her symptoms are still persistent, I would recommend that they schedule you to see the general surgeon to discuss elective removal of your gallbladder. If your symptoms have resolved but you are concerned about persistent episodes, I would recommend that they order the HIDA scan. I have given you a small supply of hydrocodone, a pain medication that will help if you get a severe flare again. I would recommend you take 1 of the Zofran tablets which is an anti nausea medicine and then wait about 20 minutes for that to kick in and then take 2 of the hydrocodone pain tablets. You can repeat the pain medicine every 4-6 hours if your symptoms persist. If you have a high fever, more localizing pain in the right upper quadrant of the abdomen, bloody stools or physically unable to hold down any liquids for over 24 hours, you should consider sooner re-evaluation. Activity Level: No Restrictions Discharge Diet: Regular Prescriptions: No Action acetaminophen 325 mg tablet 325 - 650 mg PO Q6H PRN (Reason: pain) sumatriptan succinate 100 mg tablet 100 mg PO DIRECTED ondansetron HCl 8 mg tablet 4 - 8 mg PO Q8H PRN (Reason: nausea/vomiting) amitriptyline 25 mg tablet 25 mg PO QPM Follow Up/Referrals: Sera Richmond MD [Primary Care Provider] - Stand Alone Forms: [employer] Info Instructions
[2025-03-11 01:51] LABS: Lactate* 0.6 mmol/L (0.5-1.9)
[2025-03-11] MEDS: ONDANSETRON 2 MG/ML inj 4 MG IVP (01:53)
[2025-03-11] MEDS: HYDROmorphone 0.5 mg/0.5 ml inj IVP (01:53)
--- OUTSIDE RECORDS SUMMARY | 2025-03-11 01:53 | XMS_ITS | Clinical Summary ---
Author Organization [place] Address [address] 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
--- OUTSIDE RECORDS SUMMARY | 2025-03-11 01:53 | XMS_ITS | Clinical Summary ---
Author Organization [employer] [facility] Address [address] [place] [id number] Care Team Providers Care Customer Service Technician Name Role Phone Unknown, Doctor Unavailable Unavailable [...] Type Department Care Team Description 02/04/2025 Telephone [facility] [address] [place] [address] Betsy Dotson PA Refill Request 01/27/2025 2:20 PM CDT Office Visit [facility] [address] [place] [address] Betsy Dotson PA Medication Management 01/27/2025 Travel 01/25/2025 Orders Only [facility] HIM SERVICES Scanner 1 scan: (1-Ord) NORAN 01/13/2025 12:03 PM COSMETICS SUPERVISOR - 01/13/2025 1:54 PM [facility] Emergency [place] [facility] [address] [place] [address] Susie Cruz PA Scholz, Ryan Bensley, Right-sided chest pain (Primary Dx); Musculoskeletal chest pain; Pleuritic chest pain Discharge Disposition: Home Self Care 01/13/2025 Travel 01/13/[address] 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 file Not on file N [...] 37 C (98.6 F) 01/13/2025 10:07 AM COSMETICS SUPERVISOR Respiratory Rate 16 01/13/2025 10:07 AM COSMETICS SUPERVISOR Oxygen Saturation 100% 01/13/2025 12:25 PM COSMETICS SUPERVISOR Inhaled Oxygen Concentration - - Weight 76.2 kg (168 lb) 01/27/2025 2:22 PM CDT Height 162.6 cm (5' 4) 01/13/2025 10:07 AM COSMETICS SUPERVISOR Body Mass Index 28.84 01/13/2025 10:07 AM COSMETICS SUPERVISOR Plan of Treatment Health Maintenance Due Date [...] PA AND LATERAL STAT 01/13/2025 1:24 PM COSMETICS SUPERVISOR HEPATIC FUNCTION PANEL STAT 01/13/2025 12:31 PM COSMETICS SUPERVISOR PRO-BNP STAT 01/13/2025 12:31 PM COSMETICS SUPERVISOR D-DIMER,QUANTITATIV E STAT 01/13/2025 12:31 PM COSMETICS SUPERVISOR TROPONIN T (HS) ACUTE W/2HR REFLEX STAT 01/13/2025 12:31 PM COSMETICS SUPERVISOR BASIC METABOLIC PANEL STAT 01/13/2025 12:31 PM COSMETICS SUPERVISOR CBC W PLT NO DIFF STAT 01/13/2025 12: 31 PM COSMETICS SUPERVISOR EKG 12 LEAD STAT 01/13/2025 10:11 AM COSMETICS SUPERVISOR HPV HIGH RISK Routine 10/12/2022 11:00 AM COSMETICS SUPERVISOR Screening for cervical cancer ANTI HIV 1/2 [...] VIEWS PA AND LATERAL (01/13/2025 1:24 PM COSMETICS SUPERVISOR) Anatomical Region Laterality Modality CHEST, THORAX, Lung, HEART Compu steff Radiography 01/13/2025 1:24 PM COSMETICS SUPERVISOR Impressions 01/13/2025 1:29 PM COSMETICS SUPERVISOR Negative chest. Lungs clear. Narrative 01/13/2025 1:29 PM COSMETICS SUPERVISOR For Patients: As a result of the Century Cures Act, medical imaging exams and procedure reports are released immediately into your electronic medical record. You may view this report before your referring provider. If you have questions, please contact your health care provider. EXAM: XR CHEST 2 VIEWS PA AND LATERAL LOCATION: [facility] DATE: 01/13/2025 INDICATION: SOB. [...] CHEST 2 VIEWS PA AND LATERAL LOCATION: [facility] DATE: 01/13/2025 INDICATION: SOB. Chest pain. COMPARISON: 11/23/2021 IMPRESSION: Negative chest. Lungs clear. us Susie CHUNG GENERAL IMAGING Final R esult * TROPONIN T (HS) ACUTE W/2HR REFLEX (01/13/2025 12:31 PM COSMETICS SUPERVISOR) TROPONIN T HS <6 6-10 ng/L ng/L 01/13/2025 1:16 PM COSMETICS SUPERVISOR [facility] Blood BLOOD SPECIMEN / Unknown IV Start / Unknown 01/13/2025 12:31 PM COSMETICS SUPERVISOR 01/13/2025 12:35 PM COSMETICS SUPERVISOR [facility] - 01/13/2025 1:16 PM COSMETICS SUPERVISOR hs-cTnT (Elecsys Troponin T Gen 5) concentration [...] us Susie CHUNG CHEMISTRY Final R esult [facility] SENDOUT INTERNAL [facility] [id number] [place] [address] * CBC W PLT NO DIFF (01/13/2025 12:31 PM [facility]) WHITE BLOOD COUNT 6.8 4.5 - 11.0 thou/cu mm 01/13/2025 12:39 PM [facility] RED BLOOD COUNT 4.96 4.00 - 5.20 mil/cu mm 01/13/2025 12:39 PM [facility] HEMOGLOBIN 14.0 12.0 - 16.0 g/dL 01/13/2025 12:39 PM [facility] HEMATOCRIT 40.3 33.0 - 51.0 % 01/13/2025 12:39 PM [facility] MCV 81 80 - 100 fL 01/13/2025 12:39 PM [facility] MCH 28.2 26.0 - 34.0 pg 01/13/2025 12:39 PM [facility] MCHC 34.7 32.0 - 36.0 g/dL 01/13/2025 12:39 PM [facility] RDW 13.2 11.5 - 15.5 % 01/13/2025 12:39 PM [facility] PLATELET COUNT 320 140 - 440 thou/cu mm 01/13/2025 12:39 PM [facility] MPV 9.9 6.5 - 11.0 fL 01/13/2025 12:39 PM COSMETICS SUPERVISOR [facility] NRBC 0.0 % 01/13/2025 12:39 PM COSMETICS SUPERVISOR [facility] ABS NRBC 0.0 thou /cu mm 01/13/2025 12:39 PM [facility] Blood BLOOD SPECIMEN / Unknown IV Start / Unknown 01/13/2025 12:31 PM COSMETICS SUPERVISOR 01/13/2025 12:35 PM [facility] LABORATORY - 01/13/2025 12:39 PM COSMETICS SUPERVISOR RN to order if patient presents with anterior chest pain, consistent with angina. Susie CHUNG HEMATOLOGY Final R esult Performing Organization Address City/[facility]/ZIP Co de Phone Number [facility] SENDOUT INTERNAL [facility] [id number] [place] [phone] * D-DIMER,QUANTITATIVE (01/13/2025 12:31 PM COSMETICS SUPERVISOR) D-DIMER,QUANTI TATIVE 0.23 <=0.49 FEU mcg/mL 01/13/2025 12:46 PM [facility] Blood BLOOD SPECIMEN / Unknown IV Start / Unknown 01/13/2025 12:31 PM COSMETICS SUPERVISOR 01/13/2025 12:35 PM [facility] LABORATORY - 01/13/2025 12:46 PM COSMETICS SUPERVISOR The cut off value for exclusion of Deep Vein Thrombosis and / or Pulmonary Embolism is 0.50 FEU mcg/mL For patients greater than 50 years of age the upper limit is age dependent and was calculated with the formula: (PATIENT AGE x 0.01) FEU mcg/mL = Upper limit of normal range Susie CHUNG HEMATOLOGY Final R esult Performing Organization Address [facility]/ZIP Co de Phone Number [facility] SENDOUT INTERNAL ZIP [phone] [place] [phone] * PRO-BNP (01/13/2025 12:31 PM COSMETICS SUPERVISOR) PRO-BNP <36 <125 pg/mL 01/13/2025 1:16 PM [facility] Blood BLOOD SPECIMEN / Unknown IV Start / Unknown 01/13/2025 12:31 PM COSMETICS SUPERVISOR 01/13/2025 12:35 PM COSMETICS SUPERVISOR [facility] - 01/13/2025 1:16 PM COSMETICS SUPERVISOR The following cut-points have been suggested for [...] OUTS Final R esult [facility] SENDOUT INTERNAL ZIP [address] [place] [phone] * (ABNORMAL) HEPATIC FUNCTION PANEL (01/13/2025 12:31 PM COSMETICS SUPERVISOR) ALBUMIN 4.7 4.0 - 4.9 g/dL 01/13/2025 1:16 PM [facility] PROTEIN,TOTAL 8.2(H) 6.0 - 8.0 g/dL 01/13/2025 1:16 PM [facility] BILIRUBIN,TOTAL 0.6 0.0 - 1.2 mg/dL 01/13/2025 1:16 PM [facility] BILIRUBIN,DIRECT 0.2 0.0 - 0.2 mg/dL 01/13/2025 1:16 PM [facility] BILIRUBIN,INDIRE CT 0.4 0.2 - 0.8 mg/dL 01/13/2025 1:16 PM [facility] ALK PHOSPHATASE 56 35 - 104 IU/L 01/13/2025 1:16 PM [facility] ALT (SGPT) 6(L) 10 - 35 IU/L 01/13/2025 1:16 PM [facility] AST (SGOT) 14 10 - 35 IU/L 01/13/2025 1:16 PM [facility] Blood BLOOD SPECIMEN / Unknown IV Start / Unknown 01/13/2025 12:31 PM COSMETICS SUPERVISOR 01/13/2025 12:35 PM [facility] us Susie CHUNG CHEMISTRY Final R esult [facility] SENDOUT INTERNAL ZIP [phone] [place] [phone] * BASIC METABOLIC PANEL (01/13/2025 12:31 PM [facility]) SODIUM 137 136 - 145 mmol/L 01/13/2025 1:16 PM [facility] POTASSIUM 4.1 3.5 - 5.1 mmol/L 01/13/2025 1:16 PM [facility] CHLORIDE 101 98 - 107 mmol/L 01/13/2025 1:16 PM [facility] CO2,TOTAL 26 22 - 29 mmol/L 01/13/2025 1:16 PM [facility] ANION GAP 10 5 - 18 01/13/2025 1:16 PM [facility] GLUCOSE 99 70 - 99 mg/dL 01/13/2025 1:16 PM [facility] CALCIUM 9.6 8.8 - 10.4 mg/dL 01/13/2025 1:16 PM [facility] Comment: Reference ranges for this test were updated on 09/22/2024 to reflect our healthy population more accurately. Reference range changes are not retroactively applied to results, but previous results using the same methodology can be interpreted in the context of the new reference range. BUN 10 6 - 20 mg/dL 01/13/2025 1:16 PM [facility] CREATININE 0.70 0.50 - 0.90 mg/dL 01/13/2025 1:16 PM [facility] BUN/CREAT RATIO 14 10 - 20 1:16 PM COSMETICS SUPERVISOR [facility] eGFR >90 >90 mL/min/1.7 3m2 01/13/2025 1:16 PM COSMETICS SUPERVISOR [facility] Comment:As of 2022, eG FR is calculated by the CKD-EPI creatinine equation without race adjustment. eGFR can be influenced by muscle mass, exercise, and diet. The reported eGFR is an estimation only and is only applicable if the renal function is stable. Blood BLOOD SPECIMEN / Unknown IV Start / Unknown 01/13/2025 12:31 PM COSMETICS SUPERVISOR 01/13/2025 12:35 PM COSMETICS SUPERVISOR Susie CHUNG CHEMISTRY Final R esult Performing Organization Address City/[facility]/ZIP Co de Phone Number [facility] SENDOUT INTERNAL ZIP [phone] [place] [phone] * EKG 12 LEAD (01/13/2025 10:11 AM COSMETICS SUPERVISOR) Interpretation Normal sinus rhythm Nonspecific T wave abnormality Abnormal ECG BEYOND NOW Ventricular Rate 82 BPM BEYOND NOW Atrial Rate 82 BPM BEYOND NOW P-R Interval 158 ms BEYOND NOW QRS Duration 74 ms BEYOND NOW QT 324 ms BEYOND NOW QTc 378 ms BEYOND NOW P [place] 48 degrees BEYOND NOW R [place] 10 degrees BEYOND NOW T [place] 29 degrees BEYOND NOW 01/13/2025 10:1 1 AM COSMETICS SUPERVISOR 01/14/2025 10:32 AM COSMETICS SUPERVISOR Susie CHUNG EKG ORD Final R esult Performing Organization Address City/[facility]/ZIP Co de Phone Number BEYOND NOW [place], [place] * HPV HIGH RISK (10/12/2022 11:00 AM COSMETICS SUPERVISOR) TYPE 16 Negative Negative 10/17/2022 11:08 AM COSMETICS SUPERVISOR [facility] TYPE 18 Negative Negative 10/17/2022 11:08 AM COSMETICS SUPERVISOR [facility] OTHER HIGH RISK TYPES Negative Negative 10/17/2022 11:08 AM COSMETICS SUPERVISOR [facility] Other (Cervical) Non-Blood / Unknown 10/12/2022 11:00 AM COSMETICS SUPERVISOR 10/15/2022 9:10 AM COSMETICS SUPERVISOR Narrative [facility] - 10/17/2022 11:08 AM COSMETICS SUPERVISOR HPV types 16, 18, 31, 33, 35, 39, 45, 51, 52, 56, 58, 59, 66 and 68 DNA were undetectable or below the pre-set threshold. Methodology: Rosario Jose Alfredo 4800 HPV Test Sera Richmond MD MICROBIOLOGY Final Result [facility] [address] [place] [address], [place] * ANTI HCV (06/04/2018 3:33 PM CDT) HEPATITIS C ANTIBODY Non-React tootie Non-React tootie 06/04/2018 9:01 PM CDT [facility] Comment:Antibodies to HCV no t detected; does not exclude the possibility of exposure to HCV. Blood BLOOD SPECIMEN / Unknown Venipuncture / Unknown 06/04/2018 3:33 PM CDT 06/04/2018 3:33 PM CDT Chacha CHUNG SEND OUTS Final R esult Performing Organization Address City/[facility]/ZIP Co de Phone Number [facility] [address] [place] [address], [place] * ANTI HIV 1/2 (06/04/2018 3:33 PM CDT) Pathologist [facility] HIV-1/HIV-2 ANTIBODY Non-Reacti ve Non-Reacti ve 06/04/2018 9:03 PM CDT [facility] Comment:HIV-1 p24 and HIV-1/ HIV-2 Ab not detected. Blood BLOOD SPECIMEN / Unknown Venipuncture / Unknown 06/04/2018 3:33 PM CDT 06/04/2018 3:33 PM CDT Chacha CHUNG SEND OUTS Final R esult [facility] [address] [place] [address], from Last 3 Months or Most Recently [...] 11:02 PM 10/04/2016 3:03 AM Care Teams Customer Service Technician Relationship Specialty Start Date End Date Sera Richmond MD [address] [place] [address] PCP - General Family Practice 12/18/18 Unknown, Doctor . Unknown Physician Specialty 08/12/15
[2025-03-11 01:54] LABS: Basophils Absolute Auto 0.07 K/uL (0.00-0.30); Eosinophils Absolute Auto 0.13 K/uL (0.00-0.50); Eosinophils Percent Auto 1.8 % (0.0-7.0); Hemoglobin* 12.5 gm/dL (12.0-16.0); Immature Granulocytes Abs Auto 0.06 K/uL (0.00-0.30); Immature Granulocytes Pct Auto 0.8 %; Lymphocytes Absolute Auto 1.75 K/uL (0.90-2.90); Lymphocytes Percent Auto 24.4 % (20-44); Mean Corpuscular HGB Conc 33 gm/dL (32-36); Mean Corpuscular Hemoglobin 28 pg (26-34); Mean Corpuscular Volume 85 fL (80-100); Monocytes Percent Auto 6.8 % (0.0-11.0); Neutrophils Absolute Auto 4.68 K/uL (1.7-7.0); Neutrophils Percent Auto 65.2 % (42.0-72.0); Platelet Count* 290 K/uL (140-440); RDW Coefficient of Variation % 13.2 % (11.5-15.5); Red Blood Count 4.46 m/uL (4.00-5.20); White Blood Count* 7.18 K/uL (4.50-11.00)
[2025-03-11 01:57] LABS: Slide Review Reflex No
[2025-03-11 02:06] LABS: Albumin* 4.4 g/dL (3.3-5.0); Chloride* 103 mmol/L (96-114); Sodium* 139 mmol/L (135-149)
[2025-03-11 02:07] LABS: Potassium* 3.7 mmol/L (3.6-5.1)
[2025-03-11 02:09] LABS: Alanine Aminotransferase* 11 U/L (4-35); Alkaline Phosphatase* 44 U/L (40-150); Anion Gap 8 mEq/L (7-15); Aspartate Amino Transferase* 21 U/L (12-35); Bilirubin Total* 0.5 mg/dL (0.1-1.5); Blood Urea Nitrogen* 14 mg/dL (5-24); Carbon Dioxide* 28 mmol/L (20-32); Creatinine* 0.7 mg/dL (0.5-1.5); Est. Creatinine Clearance* 90.41; Estimated Glomerular Filt Rate 111 ml/min; Lipase* 162 U/L (23-300); Total Protein* 7.2 g/dL (6.0-8.3)
[2025-03-11] MEDS: PANTOPRAZOLE SODIUM 40 MG INJ IVP (02:09)
[2025-03-11 02:10] LABS: Calcium* 9.5 mg/dL (8.4-10.6); Glucose* 103 mg/dL (60-115)
[2025-03-11 02:13] LABS: C Reactive Protein* < 0.5 mg/dL (0.5-1.0)
--- NOTE | 2025-03-11 02:36 | CRLHL7_ITS ---
For Patients: As a result of the Cures Act, medical imaging exams and procedure reports are released immediately into your electronic medical record. You may view this report before your referring provider. If you have questions, please contact your health care provider. INDICATION: Upper abdominal pain. TECHNIQUE: Ultrasound abdomen limited. COMPARISON: None. FINDINGS: Gallbladder: Single gallstone with posterior shadowing measuring up to 1.7 cm. Normal wall thickness. No pericholecystic fluid. Common bile duct: 4.5 mm. IMPRESSION: Cholelithiasis, but no sonographically apparent inflammatory changes to suggest acute cholecystitis. Dictated by Дмитрий Chavez MD @ 03/11/2025 3:42:01 AM (Electronically Signed)
[2025-03-11] MEDS: HYDROCODONE-ACETAMIN 5-325 MG 1 TAB 2 TAB PO (02:45)
[2025-03-11 02:55] VITALS: BP 109/74; PULSE 72; RESP 18; TEMP 36.4; O2SAT 99
== END 2025-03-11 04:19 | disposition home or self-care (01) ==
PROVIDERS: Emergency Provider Family Medicine; PCP Family Medicine
DX: K82.8 Other specified diseases of gallbladder (principal)
CPT/HCPCS: 36415; 74177; 76705; 80053; 81001; 81025; 83605; 83690; 85025; 86140; 87086; 93005; 94761; 96374; 96375; 99284; 99285; A9270; J1171; J2405; J2470; Q9967

== ENCOUNTER 2025-03-30 07:20 | Day surgery (SDC) | payer OTHER, SELFPAY ==
[2025-03-30] VITALS (16 sets, daily range): BP systolic 84–101; BP diastolic 50–73; PULSE 43–68; RESP 16–18; TEMP 36.1–37; O2SAT 92–100; BMI 28.5
[2025-03-30 07:49] LABS: Ur HCG Qualitative* Negative (Negative)
[2025-03-30] MEDS: LACTATED RINGERS 1000 ML 1,000 ML 100 ML IV (08:05)
[2025-03-30] MEDS: SODIUM CHLORIDE 0.9 % (FLUSH) 10 ML SYRINGE IVF (08:06)
--- NOTE | 2025-03-30 08:28 | W.PM.H&PU ---
History & Physical Update History & Physical Update H&P Reviewed and patient assessed: No changes noted
[2025-03-30] MEDS: CEFAZOLIN 1 GM inj IVP (09:11)
[2025-03-30] MEDS: BUPIVACAINE 0.5% 30 ML INJECTION (09:50)
--- NOTE | 2025-03-30 10:02 | PM.GSPRC ---
Operative Note Date of procedure: 03/30/25 Pre-op diagnosis: Biliary colic Post-op diagnosis: Same Type of Procedure: Laparoscopic cholecystectomy Indications: Patient is a 44-year-old female who presented to clinic with workup and symptoms consistent with biliary colic. Risks and benefits of operative intervention were discussed at length with the patient. Risks included but was not limited to: Bleeding, infection, risk of damage to surrounding structures, possible need for additional procedures, possible need to convert to an open operation and postoperative complications such as pneumonia, pulmonary emboli or PR. All questions and concerns were addressed with the patient agreeing to proceed. Procedure Description: After discussing the risks and benefits of the procedure, the patient signed informed consent.? The operative site was marked and the patient was brought to the operating room and placed on the operating table in supine position.? Care was taken to pad the patient's pressure points.?? The patient was then intubated by anesthesia.?? The operative site was then prepped and draped in the usual sterile fashion.? A time-out was then performed. Entrance to the abdomen was gained via a 5 mm Visiport in the left upper quadrant. The abdomen was insufflated and briefly surveyed for signs of injury. There was none. 11 mm umbilical port was placed as well as 2 working ports along the right costal margin. Patient was then placed in reverse Trendelenburg position with the right side up. The gallbladder fundus was grasped and retracted cephalad. A small amount of dissection was needed to free omental adhesions from the gallbladder. The infundibulum was grasped. A combination of hook cautery and blunt dissection was used to carefully dissect out the cystic duct and artery until they could clearly be seen entering the gallbladder without any intervening structures. The gallbladder was dissected off the cystic plate to achieve the critical view. Once this was achieved the cystic artery was clipped with 2 clips proximally and 1 clip distally and transected with the scissors. The cystic duct was palpated with a small stone appreciated within the duct. This was able to be milked into the gallbladder. Three clips were placed proximally across the dust and 1 distally before it was transected with scissors. The gallbladder was then taken off of the liver bed. A small vein was seen within the gallbladder fossa. A proximal clip was applied before cautery was used to transected distally. The gallbladder was then completely taken off and removed from the abdomen using an Endo-Catch bag. The gallbladder bed was surveyed for hemostasis, which was excellent. The ports were then removed under direct vision. The umbilical port fascia was closed with 0 Vicryl. The skin was closed with absorbable subcuticular suture. Instrument sponge and needle counts were correct at the end of the case. The patient was then woken and transferred to the PACU in stable condition. Findings: Normal appearing gallbladder. Stone within the cystic duct. Anesthesia: GETA Surgeon: Martha Jones MD Estimated blood loss (mL): 5 Specimen: Gallbladder Condition: stable Disposition: PACU
--- NOTE | 2025-03-30 10:14 | P.ANES_ITS ---
Anesthesia Charges Start Date/Time Anesthesia Start Date: 03/30/25 Anesthesia Start Time: 09:00 Stop Date/Time Anesthesia Stop Date: 03/30/25 Anesthesia Stop Time: 10:11 Coding CPT Codes CPT Codes: ANESTH SURG UPPER ABDOMEN - 18937 ([id number]) P2 - PATIENT W/MILD SYST DISEASE, QK - MOLD CHANGER 2-4 CNCRNT ANES PROC, QX - ROVING MACHINE OPERATOR SVC W/ MD MED DIRECTION
--- NOTE | 2025-03-30 10:14 | W.ANESCHARGE ---
Anesthesia Charges Start Date/Time Anesthesia Start Date: 03/30/25 Anesthesia Start Time: 09:00 Stop Date/Time Anesthesia Stop Date: 03/30/25 Anesthesia Stop Time: 10:11 Coding CPT Codes CPT Codes: ANESTH SURG UPPER ABDOMEN - 84047 ([id number]) P2 - PATIENT W/MILD SYST DISEASE, QK - BAGGAGE INSPECTOR 2-4 CNCRNT ANES PROC, QX - ELECTROCARDIOGRAM TECHNICIAN SVC W/ MD MED DIRECTION
[2025-03-30] MEDS: fentaNYL 100 MCG/2 ML inj 50 MCG IVP ×2 (10:25→10:29)
--- NOTE | 2025-03-30 10:37 | P.ANES_ITS ---
Anesthesia Charges Start Date/Time Anesthesia Start Date: 03/30/25 Anesthesia Start Time: 09:00 Stop Date/Time Anesthesia Stop Date: 03/30/25 Anesthesia Stop Time: 10:11 Coding CPT Codes CPT Codes: ANESTH SURG UPPER ABDOMEN - 78386 ([id number]) QK - FIRER TUNNEL KILN 2-4 CNCRNT ANES PROC, QX - CLOTH DYEING RANGE TENDER SVC W/ MD MED DIRECTION, P2 - PATIENT W/MILD SYST DISEASE
--- NOTE | 2025-03-30 10:37 | W.ANESCHARGE ---
Anesthesia Charges Start Date/Time Anesthesia Start Date: 03/30/25 Anesthesia Start Time: 09:00 Stop Date/Time Anesthesia Stop Date: 03/30/25 Anesthesia Stop Time: 10:11 Coding CPT Codes CPT Codes: ANESTH SURG UPPER ABDOMEN - 28305 ([id number]) QK - DATA CAPTURE SPECIALIST 2-4 CNCRNT ANES PROC, QX - CARCASS TRIMMER SVC W/ MD MED DIRECTION, P2 - PATIENT W/MILD SYST DISEASE
[2025-03-30] MEDS: METOCLOPRAMIDE HCL 5 MG/ML INJ 10 MG IVP (11:47)
[2025-03-30] MEDS: hydrOXYzine pamoate 25 MG CAPSULE PO (11:53)
[2025-03-30] MEDS: HYDROCODONE-ACETAMIN 5-325 MG 1 TAB PO (11:53)
[2025-03-30] MEDS: 0.9 % SODIUM CHLORIDE 500 ML 500 ML 100 ML IV (12:01)
[2025-03-30] MEDS: ONDANSETRON 2 MG/ML inj 4 MG IVP (12:09)
== END 2025-03-30 13:00 | disposition home or self-care (01) ==
LOC: OR 07:20
PROVIDERS: Anesthesiology; PCP Family Medicine; Visit Provider Surgery
PROC: 0FT44ZZ Resection of Gallbladder, Percutaneous Endoscopic Approach (ICD-10-PCS; CPT 47562; principal; 2025-03-30 08:45)
DX: K80.10 Calculus of gallbladder with chronic cholecystitis without obstruction (principal)
CPT/HCPCS: 47562; 00790; 81025; 88304; A9270; J0330; J0665; J0690; J1100; J1171; J2250; J2371; J2405; J2704; J2765; J3010; J7030; J7120

== ENCOUNTER 2025-05-28 12:05 | Emergency (ER) | payer OTHER, SELFPAY ==
[2025-05-28] VITALS (17 sets, daily range): BP systolic 121–126; BP diastolic 75–87; PULSE 45–64; RESP 18; TEMP 35.9; O2SAT 94–100; BMI 28.5
--- OUTSIDE RECORDS SUMMARY | 2025-05-28 12:06 | XMS_ITS | Clinical Summary ---
Author Organization [employer] [facility] Address [address] [place] [id number] Care Team Providers Care Insolvency Practitioner Name Role Phone Unknown, Doctor Unavailable Unavailable [...] mouth every 8 hours if needed for Nausea/Vomitin g. 30 Tablet 5 Active triamcinolone 0.1 % lotionIndication s:Rash Apply topically to affected area(s) three times daily. 120 mL 2 5 Active Active Problems Problem Noted Date [...] Encounters Date Type Department Care Team Description 03/31/2025 Lab Requisition [facility] [phone] Martha Jones MD 03/30/2025 8:30 AM CDT Office Visit [facility] [address] [place] [phone] Martha Jones MD 03/30/2025 Orders Only [facility] Scanner 1 scan: (1-Ord) NATURAL BRIDGE, LAPAROSCOPIC CHOLECYSTECTOMY, 03/30/2025 03/24/2025 9:00 AM CDT Office Visit [facility] [address] [place] [address] Martha Jones MD Consult (Calculus pf gallbladder referred by Dr. Richmond) 03/24/2025 Travel 03/18/2025 9:05 AM CDT Office Visit [facility] [address] [place] [address] Sera Richmond MD ER Follow up (Abdominal pain 03/11/25-episode of biliary dyskinesia. This is a flare up and/malfunction of the gallbladder/Kidneys: 2 mm right calcified nonobstructive renal/Gallbladder: Single gallstone with posterior shadowing measuring up to 1.7) 03/18/2025 Travel 03/12/2025 Nurse Triage [facility] [address] [place] [address] Sera Richmond MD Abdominal Pain 03/11/2025 Orders Only [facility] Scanner 1 scan: (1-Ord) KUNAL, US GALLBLADDER, 03/11/2025 03/11/2025 Orders Only [facility] Scanner 1 scan: (1-Ord) KUNAL, ABD PELVIS W, 03/11/2025 03/11/2025 Telephone [facility] [address] [place] [address] Sera Richmond MD Appointment (Order ) 03/11/2025 Telephone [facility] [address] [place] [address] Sera Richmond MD Error-please disregard from Last 3 Months Immunizations Immunization Administration [...] Answer Date Recorded PHQ-2 TOTAL SCORE 0 03/18/2025 Social Connections Answer Date Recorded Do you often feel lonely or isolated from those around you? 0 03/18/2025 Financial Resource Strain Answer Date R ecorded Difficulty of Paying Living Expenses 3 03/18/2025 Difficulty of Paying Living Expenses Not on file 03/18/2025 Food Insecurity Answer Date Recorded Do you worry your food will run out before you are able to buy more? 1 03/18/2025 Transportation Needs Answer Date Record ed Does lack of transportation keep you from medica l appointments? 1 03/18/2025 Does lack of transportation keep you from work, meetings or getting things that you need? 1 03/18/2025 Housing Stability Answer Date Recorded What is your housing situation today? 1 03/18/2025 Interpersonal Safety Answer Date Record ed Are you being hit, kicked, p ushed or yelled at (see row info)? No 01/13/2025 Interpersonal Safety Abuse 12 - 18 Not on file 01/13/2025 Interpersonal Safety Ambulatory Vulnerability No t on file 01/13/2025 Utilities Answer Date Recorded Do you have trouble paying f or utilities (for example, heat, electricity, water, phone)? 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 Not on file N [...] Sign Reading Time Taken Comments Blood Pressure 103/73 03/24/2025 8:59 AM CDT Pulse 74 03/24/2025 8:59 AM CDT Temperature 37 C (98.6 F) 01/13/2025 10:07 AM BANQUET SET UP PERSON Respiratory Rate 16 01/13/2025 10:0 7 AM BANQUET SET UP PERSON Oxygen Saturation 98% 03/24/2025 8:5 9 AM CDT Inhaled Oxygen Concentration - - Weight 75.7 kg (166 lb 14.4 oz) 03/24/2025 8:59 AM CDT with sandals Height 162.6 cm (5' 4) 01/13/2025 10:0 7 AM BANQUET SET UP PERSON Body Mass Index 28.65 01/13/2025 10:07 AM BANQUET SET UP PERSON Plan of Treatment Health Maintenance Due Date Last Done Comments Hepatitis B series for 19+ (1 of 3 - 19+ 3-dose series) 2001 COVID-19 vaccine series (2023- season) 2024 Influenza Vaccine (#1) 2025 9, 08/13/2016, 09/25/2015 BMI (ht and wt on same day) for age 18+ 10/06/2025 10/06/2024, 11/19/2023, 08/09/2023, Additional history exists Pap test for age 21-65 10/12/2025 2, 10/12/2022, 12/06/2016, Additional history exists Depression screening for age 12+ 03/18/2026 03/18/2025 Tetanus booster 12/04/2028 12/04/2018, 07/17/2016 HIV for age 15-65 Completed 06/04/2018, 02/20/2016 Hepatitis C screening for age 18-79 Completed 06/04/2018 Pneumococcal series for age 6-49 Aged Out No longer eligible based on patient's age to complete this topic Procedures Procedure Name Priority Date/Time Associated Diagnosis Comments LAB TRACKING EVENT Routine 03/30/2025 9: 47 AM CDT PATH TISSUE EXAM Routine 03/30/2025 9:47 AM CDT SCAN-OPERATIVE/PROCEDU RE REPORT 03/30/2025 12:00 AM CDT SCAN-ULTRASOUND REPORT 12:00 AM CDT SCAN-CT INTERPRETATION 12:00 AM CDT HPV HIGH RISK Routine 10/12/2022 11:00 AM BANQUET SET UP PERSON Screening for cervical cancer ANTI HIV 1/2 Routine 06/04/2018 3:33 PM CDT Encounter for supervision of normal first in first trimester (HC) ANTI HCV Routine 06/04/2018 3:33 PM CDT Encounter for supervision of normal first in first trimester (HC) from Last 3 Months or Most Recently Relevant to Health Maintenance Results * LAB TRACKING EVENT (03/30/2025 9:47 AM CDT) Other (Other) Client Collect / Unknown 03/30/2025 9:47 AM CDT 03/31/2025 7:37 AM CDT us Martha Jones MD LAB BILL ONLY Final Re sult [facility] [address] [place] [address], [place] * PATH TISSUE EXAM (03/30/2025 9:47 AM CDT) Case Report Pathology Report Case: [id number] Authorizing Provider: Martha Jones MD Collected: 03/30/2025 0947 Ordering Location: [facility] Received: 03/31/2025 1309 Pathologist: Kulwinder Knutson IV, MD Specimen: Gallbladder 04/02/2025 3:07 PM CDT [facility] Final Diagnosis A) GALLBLADDER, CHOLECYSTECTOMY: 1. Chronic cholecystitis 2. Negative for cholelithiasis 3. Negative for dysplasia and malignancy 04/02/2025 3:07 PM CDT [facility] at 1507 CDT Clinical Information Ms. Pearl is a 44 y.o. who undergoes cholecystectomy. 04/02/2025 3:07 PM CDT [facility] Gross Description F) Received in formalin, labeled with the patient's name and gallbladder, is a 7 x 2.5 x 1.3 cm collapsed gallbladder with an attached 0.5 cm diameter thin pink lymph node. Upon opening the mucosa is green and velvety with patchy, focally dense yellow excrescences. No discrete choleliths are seen. No mucosal lesion is seen. The wall has a 0.1-0.2 cm uniform thickness. Master Dyer sections to include the en face cystic duct margin and lymph node (in toto) are submitted in 1 cassette. DPL 03/31/2025 04/02/2025 3:07 PM CDT [facility] Microscopic Description The final diagnosis is based on microscopic examination of appropriate sections of all specimens. 04/02/2025 3:07 PM CDT [facility] Additional Information Interpreted at [facility] - [address], [place] [address] 04/02/2025 3:07 PM CDT [facility] Other SPECIMEN FROM GALLBLADDER / Unknown 03/30/2025 9:47 AM CDT 03/31/2025 1:09 PM CDT us Martha Jones MD PATHOLOGY/CYTOLOGY Final Result [facility] [address] [place] [address], [place] * SCAN-OPERATIVE/PROCEDURE REPORT (03/30/2025 12:00 AM CDT) us Scanner OTHER Final Result * SCAN-ULTRASOUND REPORT (03/11/2025 12:00 AM CDT) Anatomical Region Laterality Modality Other us Scanner OTHER Final Result * SCAN-CT INTERPRETATION (03/11/2025 12:00 AM CDT) Anatomical Region Laterality Modality Other us Scanner OTHER Final Result * HPV HIGH RISK (10/12/2022 11:00 AM BANQUET SET UP PERSON) TYPE 16 Negative Negative 10/17/2022 11:08 AM BANQUET SET UP PERSON [facility] TYPE 18 Negative Negative 10/17/2022 11:08 AM BANQUET SET UP PERSON [facility] OTHER HIGH RISK TYPES Negative Negative 10/17/2022 11:08 AM BANQUET SET UP PERSON [facility] Other (Cervical) Non-Blood / Unknown 10/12/2022 11:00 AM BANQUET SET UP PERSON 10/15/2022 9:10 AM BANQUET SET UP PERSON Narrative [facility] - 10/17/2022 11:08 AM BANQUET SET UP PERSON HPV types 16, 18, 31, 33, 35, 39, 45, 51, 52, 56, 58, 59, 66 and 68 DNA were undetectable or below the pre-set threshold. Methodology: Rosario Jose Alfredo 4800 HPV Test us Sera Richmond MD MICROBIOLOGY Final Result [facility] [address] [place] [address], [place] * ANTI HCV (06/04/2018 3:33 PM CDT) HEPATITIS C ANTIBODY Non-React tootie Non-React tootie 06/04/2018 9:01 PM CDT [facility] Comment:Antibodies to HCV no t detected; does not exclude the possibility of exposure to HCV. Blood BLOOD SPECIMEN / Unknown Venipuncture / Unknown 06/04/2018 3:33 PM CDT 06/04/2018 3:33 PM CDT Chacha CHUNG SEND OUTS Final R esult [facility] [address] [place] [address], [place] * ANTI HIV 1/2 (06/04/2018 3:33 PM CDT) HIV-1/HIV-2 ANTIBODY Non-Reacti ve Non-Reacti ve 06/04/2018 9:03 PM CDT [facility] Comment:HIV-1 p24 and HIV-1/ HIV-2 Ab not detected. Blood BLOOD SPECIMEN / Unknown Venipuncture / Unknown 06/04/2018 3:33 PM CDT 06/04/2018 3:33 PM CDT Chacha CHUNG SEND OUTS Final R esult [facility] [address] [place] [address], from Last 3 Months or Most Recently Relevant to Health Maintenance Insurance [employer] [employer] Member Subscriber Plan / Payer (Ef fective 2015-Present) Name:Justina Pearl Relation to Subscriber:Self Name:Justina Pearl Payer ID:Not on file Group ID:Not on file Type:Not on file Address: [facility] [address] [id number] Advance Directives * Full Code (Latest Code [...] 11:02 PM 10/04/2016 3:03 AM Care Teams Insolvency Practitioner Relationship Specialty Start Date End Date Sera Richmond MD [address] [place] [address] PCP - General Family Practice 12/18/18 Unknown, Doctor . Unknown Physician Specialty 08/12/15
--- OUTSIDE RECORDS SUMMARY | 2025-05-28 12:07 | XMS_ITS | Clinical Summary ---
Author Organization [place] Address [address] [place] [address] Care Team Providers Care Groundhand Name Role Phone No Ref-Primary, Physician Primary [...] Diagnosed Date care following delivery 01/16 Immunizations Immunization Administration Dates Next Due Influenza (IIV3) PF [...] of Binge Drinking Not on file 01/16 Kiefer Depression Scale Answer Date Recorded Kiefer Depression Score 3 01/28/2019 Last EPDS Self [...] Plan of Treatment Not on file Insurance [place] [id number] [employer] Care Teams Groundhand Relationship Specialty Start Date End Date No Ref-Primary, Physician PCP - General 01/28/19
[2025-05-28 12:37] LABS: Appearance Urine Clear (Clear)
[2025-05-28 12:39] LABS: Ur HCG Qualitative* Negative (Negative)
--- NOTE | 2025-05-28 12:42 | ED.GENADULT ---
HPI - General Adult General Chief complaint: Abdominal Pain Stated complaint: abdominal pain Time Seen by Provider: 05/28/25 12:07 History of Present Illness HPI narrative: Patient is a 44 white female about 6 weeks status post cholecystectomy. She had a gallbladder stone in her cystic duct. She felt well for about 3 weeks post cholecystectomy, but then 3 weeks after the surgery started developing some nausea vomited intermittently she reports she was late about a week from her last menstrual cycle and then had a light cycle. She has taken tests are negative. She has had also feeling of inability to fully urinate, like she has difficulty voiding. She has had no dysuria or frequency no hematuria. Also has some right upper quadrant pain that wraps were little bit around to her back consistent with what she had when she had gallbladder issues. She has had no fever chills. But has had intermittent vomiting and nausea. This has been over the last 3 weeks she has not felt as well and then last couple of days had more discomfort. This has been primarily in the right upper quadrant radiating to her back. Related Data Home Medications ?Medication ?Instructions ?Recorded ?Confirmed acetaminophen 325 mg tablet 325 - 650 mg PO Q6H PRN pain 03/11/25 03/30/25 sumatriptan succinate 100 mg tablet 100 mg PO DIRECTED 03/11/25 03/30/25 albuterol sulfate 90 mcg/actuation 1 - 2 puff inhalation 05/28/25 aerosol inhaler Allergies Allergy/AdvReac Type Severity Reaction Status Date / Time NSAIDS (Non-Steroidal Allergy Severe Anaphylaxis Verified 03/11/25 01:22 Anti-Inflamma Review of Systems Status of ROS: Reports: 6 or more systems reviewed and unremarkable except as noted in History and below [facility] Social History Smoking Status: Never smoker How often do you have a drink containing alcohol: never AUDIT-C Alcohol total score: 0 Non-prescribed substance use: denies use Caffeine: Yes (1c/day) Are you using contraception or practicing any form of control: No service: No Exam Narrative: Exam Narrative: Objective: Patient is afebrile, vital signs look within normal limits Alert orient x3, no scleral icterus Pulse regular Abdomen soft benign no marked tenderness some mild epigastric and right upper quadrant tenderness but pretty minimal no rebound Extremities without edema neurologic nonfocal Const: Vital Signs, click to edit/add: Vital Signs - 24 hr 05/28/25 12:29 05/28/25 13:36 05/28/25 14:00 Temperature 96.6 F L Pulse Rate 58 L 51 L Pulse Rate [Right Pulse Oximeter] 58 L Respiratory Rate 18 Blood Pressure Blood Pressure [Ri ght Upper Arm] 121/87 Pulse Oximetry 100 100 97 Oxygen Delivery Me thod Room Air 05/28/25 14:30 05/28/25 14:50 05/28/25 15:30 Temperature Pulse Rate 51 L 45 L 48 L Pulse Rate [Right Pulse Oximeter] Respiratory Rate Blood Pressure 124/76 Blood Pressure [Ri ght Upper Arm] Pulse Oximetry 100 98 100 Oxygen Delivery Me thod 05/28/25 16:00 05/28/25 16:15 05/28/25 16:30 Temperature Pulse Rate 54 L 64 49 L Pulse Rate [Right Pulse Oximeter] Respiratory Rate Blood Pressure 126/87 Blood Pressure [Ri ght Upper Arm] Pulse Oximetry 100 98 95 Oxygen Delivery Me thod 05/28/25 16:31 05/28/25 16:45 05/28/25 17:00 Temperature Pulse Rate 47 L 46 L 47 L Pulse Rate [Right Pulse Oximeter] Respiratory Rate Blood Pressure Blood Pressure [Ri ght Upper Arm] Pulse Oximetry 98 94 95 Oxygen Delivery Me thod 05/28/25 17:15 05/28/25 17:30 05/28/25 17:45 Temperature Pulse Rate 52 L 46 L 52 L Pulse Rate [Right Pulse Oximeter] Respiratory Rate Blood Pressure Blood Pressure [Ri ght Upper Arm] Pulse Oximetry 95 96 98 Oxygen Delivery Me thod 05/28/25 18:00 05/28/25 18:11 Temperature Pulse Rate 49 L Pulse Rate [Right Pulse Oximeter] Respiratory Rate Blood Pressure 126/75 Blood Pressure [Ri ght Upper Arm] Pulse Oximetry 97 Oxygen Delivery Me thod Course Vital Signs Vital signs: Initial Vital Signs Temperature 96.6 F L 05/28/25 12:29 Temperature Source Temporal Artery Scan 05/28/25 12:29 Pulse Rate 58 L 05/28/25 12:29 Respiratory Rate 18 05/28/25 12:29 Blood Pressure 121/87 05/28/25 12:29 Blood Pressure Mean 98 05/28/25 12:29 Blood Pressure Position Sitting 05/28/25 12:29 Pulse Oximetry 100 05/28/25 12:29 Oxygen Delivery Method Room Air 05/28/25 12:29 Vital Signs Temperature 96.6 F L 05/28/25 12:29 Pulse Rate 58 L 05/28/25 12:29 Respiratory Rate 18 05/28/25 12:29 Blood Pressure 121/87 05/28/25 12:29 Pulse Oximetry 100 05/28/25 12:29 Oxygen Delivery Method Room Air 05/28/25 12:29 Temperature 96.6 F L 05/28/25 12:29 Pulse Rate 49 L 05/28/25 18:00 Respiratory Rate 18 05/28/25 12:29 Blood Pressure 126/75 05/28/25 18:11 Pulse Oximetry 97 05/28/25 18:00 Oxygen Delivery Method Room Air 05/28/25 12:29 Medications Administered Medications: Discontinued Medications Generic Name Dose Route Start Last Admin Trade Name Freq PRN Reason Stop Dose Admin Hydromorphone HCl 1 mg 05/28/25 14:32 05/28/25 14:37 Hydromorphone 0.5 Mg/0.5 Ml Inj IVP 05/28/25 14:33 1 mg ONCE ONE Administration Hydromorphone HCl 0.5 mg 05/28/25 16:17 05/28/25 16:26 Hydromorphone 0.5 Mg/0.5 Ml Inj IVP 05/28/25 16:18 0.5 mg ONCE ONE Administration Sodium Chloride 1,000 mls @ 6,000 mls/hr 05/28/25 12:45 05/28/25 14:52 0.9 % Sodium Chloride 1000 Ml IV 05/28/25 12:54 Infused .Q10M BEKAH Infusion Sodium Chloride 1,000 mls @ 6,000 mls/hr 05/28/25 14:30 05/28/25 14:44 0.9 % Sodium Chloride 1000 Ml IV 05/28/25 14:39 6,000 mls/hr .Q10M BEKAH Administration Sodium Chloride 500 mls @ 500 mls/hr 05/28/25 16:17 05/28/25 16:26 0.9 % Sodium Chloride 500 Ml IV 05/28/25 17:16 500 mls/hr .Q1H ONE Administration Morphine Sulfate 4 mg 05/28/25 13:03 05/28/25 13:07 Morphine 4 Mg/Ml Inj IVP 05/28/25 13:04 4 mg ONCE ONE Administration Morphine Sulfate 4 mg 05/28/25 13:32 05/28/25 13:36 Morphine 4 Mg/Ml Inj IVP 05/28/25 13:33 4 mg ONCE ONE Administration Ondansetron HCl 4 mg 05/28/25 12:37 05/28/25 13:07 Ondansetron 2 Mg/Ml Inj IVP 05/28/25 12:38 4 mg ONCE ONE Administration Tamsulosin HCl 0.4 mg 05/28/25 14:28 05/28/25 14:40 Tamsulosin Hcl 0.4 Mg Capsule PO 05/28/25 14:29 0.4 mg ONCE ONE Administration Medical Decision Making MDM Narrative Medical decision making narrative: 44-year-old female 6 weeks status post cholecystectomy, now with 3 week history of vomiting intermittently inability to void fully, some right upper abdominal in full flank pain. I think at this time will start with an ultrasound of her gallbladder fossa make sure there is no obvious bile leak or fluid collection. If this is negative and her labs are reassuring. May proceed with CT scanning if she has not got a positive test. Surgical consult as needed. Will check her laboratory studies, IV fluid, IV Zofran. Disposition pending findings above. Patient did have a nonobstructing kidney stone on the right is about [address] scan. Will check an ultrasound make sure gallbladder fossa looks normal and then probably proceed to CT scanning to rule out stone or other intra-abdominal pathology pending her lab results. She does have 3+ urine blood. She reports she is not having her period currently. Addendum 2:30 p.m. patient's lab values look reassuring, her urinalysis shows 10-25 red cells per high-powered field. For CT scan of the abdomen shows a 3 mm calculus in the distal right ureter just upstream from the red right vesicoureteral junction resulting in mild hydronephrosis and hydroureter. The patient feels like she still has discomfort in that area will hang a 2nd bag of fluid will give her Flomax orally. Will let her rest in the ER for period of time and see how she responds. Hopefully this should pass at the size of the stone that it is. No evidence of obvious infection in her urine or blood stream noted with a normal white count and urinalysis other than hematuria. Addendum 6:10 p.m. patient feels markedly better, will send her home with [facility], will also have her use use a urine strainer. Rest light activity, push fluids, follow-up with primary care in the next 3-4 days. Return sooner problems or concerns. Lab Data Labs: Lab Results 05/28/25 05/28/25 Range/Units 12:25 12:55 WBC 9.93 (4.50-11.00) K/uL RBC 4.46 (4.00-5.20) m/uL Hgb 12.6 (12.0-16.0) gm/dL Hct 38.4 (33.0-51.0) % MCV 86 (80-100) fL MCH 28 (26-34) pg MCHC 33 (32-36) gm/dL RDW Coeff of Daniel 13.0 (11.5-15.5) % Plt Count 294 (140-440) K/uL Neut % (Auto) 84.0 H (42.0-72.0) % Lymph % (Auto) 10.6 L (20-44) % [place] % (Auto) 3.8 (0.0-11.0) % Eos % (Auto) 0.9 (0.0-7.0) % Baso % (Auto) 0.6 (0.0-3.0) % Neut # (Auto) 8.30 H (1.7-7.0) K/uL Lymph # (Auto) 1.10 (0.90-2.90) K/uL [place] # (Auto) 0.40 (0.00-0.90) K/UL Eos # (Auto) 0.09 (0.00-0.50) K/uL Baso # (Auto) 0.06 (0.00-0.30) K/uL Abs Immat Gran (auto) 0.01 (0.00-0.30) K/uL Imm/Tot Granulo (auto) 0.1 % Sodium 138 (135-149) mmol/L Potassium 3.8 (3.6-5.1) mmol/L Chloride 104 (96-114) mmol/L Carbon Dioxide 27 (20-32) mmol/L Anion Gap 7 (7-15) mEq/L BUN 12 (5-24) mg/dL Creatinine 0.7 (0.5-1.5) mg/dL Estimated Creat Clear 90.41 Estimated GFR 111 ml/min Glucose 115 (60-115) mg/dL Calcium 9.2 (8.4-10.6) mg/dL Total Bilirubin 0.8 (0.1-1.5) mg/dL Direct Bilirubin 0.0 (0.0-0.5) mg/dL AST 23 (12-35) U/L ALT 13 (4-35) U/L Alkaline Phosphatase 50 (40-150) U/L C-Reactive Protein < 0.5 L (0.5-1.0) mg/dL Total Protein 7.5 (6.0-8.3) g/dL Albumin 4.4 (3.3-5.0) g/dL Amylase 52 (18-89) U/L Lipase 29 (23-300) U/L HCG, Qual Negative (Negative) Urine Color Yellow (Yellow) Urine Appearance Clear (Clear) Urine pH 5.5 (5.0-8.5) Ur Specific [place] >= 1.030 (1.000-1.030) Urine Protein 2+ A (Negative) Urine Glucose (UA) Negative (Negative) Urine Ketones Negative (Negative) Urine Blood 3+ A (Negative) Urine Nitrite Negative (Negative) Urine Bilirubin Negative (Negative) Urine Urobilinogen 0.2 (0.2-1.0) Ur Leukocyte Esterase Negative (Negative) Urine RBC 10-25 A (0-2) Urine WBC 0-2 (0-5) Ur Squamous Epith Cells Few (None-Few) Calcium Oxalate Crystal Few A (None) Urine Bacteria Few A (None) Urine Mucus Few A (None) Urine HCG, Qual Negative (Negative) Discharge Plan Discharge Clinical Impression: Abdominal pain, Status post cholecystectomy, Kidney stone Patient Disposition: Home w/ Parent or Adult Condition: Improved Additional Instructions: Rest ,fluids ,strain urine /strainer. [place] as prescribed, recheck with regular doctor in 3-5 days. Will avoid Toradol as she has the anaphylactic reaction to NSAID medicines that could be related. Activity Level: Light activity Discharge Diet: Regular Prescriptions: No Action acetaminophen 325 mg tablet 325 - 650 mg PO Q6H PRN (Reason: pain) sumatriptan succinate 100 mg tablet 100 mg PO DIRECTED albuterol sulfate 90 mcg/actuation HFA aerosol inhaler 1 - 2 puff INHALATION Follow Up/Referrals: Sera Richmond MD [Primary Care Provider, Family Practice] Stand Alone Forms: [employer] Info Instructions
[2025-05-28 13:03] LABS: Hematocrit 38.4 % (33.0-51.0); Hemoglobin* 12.6 gm/dL (12.0-16.0); Immature Granulocytes Abs Auto 0.01 K/uL (0.00-0.30); Immature Granulocytes Pct Auto 0.1 %; Mean Corpuscular HGB Conc 33 gm/dL (32-36); Mean Corpuscular Hemoglobin 28 pg (26-34); Mean Corpuscular Volume 86 fL (80-100); RDW Coefficient of Variation % 13.0 % (11.5-15.5); Red Blood Count 4.46 m/uL (4.00-5.20); White Blood Count* 9.93 K/uL (4.50-11.00)
--- NOTE | 2025-05-28 13:05 | CRLHL7_ITS ---
For Patients: As a result of the Century Cures Act, medical imaging exams and procedure reports are released immediately into your electronic medical record. You may view this report before your referring provider. If you have questions, please contact your health care provider. INDICATION: Right-sided abdominal pain, nausea. TECHNIQUE: CT abdomen and pelvis without contrast. COMPARISON: CT abdomen/pelvis dated 03/11/2025. FINDINGS: Lower chest: No focal consolidation. Evaluation of solid organs is limited secondary to lack of IV contrast administration. Liver: No suspicious focal hepatic lesion. Gallbladder and bile ducts: Post cholecystectomy. Pancreas: Unremarkable. Spleen: Unremarkable. Adrenal glands: Unremarkable. Kidneys: 0.3 cm calculus in the distal right ureter, just upstream of the right ureterovesicular junction, results in mild right hydronephrosis and hydroureter. Retroperitoneum: No lymphadenopathy. Bowel and mesentery: Bowel is not obstructed. No significant ascites, no pneumoperitoneum. Prior appendectomy. Bladder: Decompressed, suboptimally evaluated. Reproductive organs: Unremarkable. Pelvic lymph nodes: No lymphadenopathy. Vessels: Unremarkable for unenhanced study. Abdominal wall: No acute abdominal wall abnormality. Bones: Multilevel degenerative changes of the spine. No suspicious/aggressive focal osseous lesion. IMPRESSION: 0.3 cm calculus in the distal right ureter, just upstream of the right ureterovesicular junction results in mild right hydronephrosis and hydroureter. Please note that all CT scans at this facility use dose modulation, iterative reconstruction, and/or weight-based dosing when appropriate to reduce radiation dose to as low as reasonably achievable. Dictated by Arabella Jaimes MD @ 05/28/2025 2:23:41 PM (Electronically Signed)
[2025-05-28] MEDS: ONDANSETRON 2 MG/ML inj 4 MG IVP (13:07)
[2025-05-28] MEDS: MORPHINE 4 MG/ML INJ IVP ×2 (13:07→13:36)
[2025-05-28 13:12] LABS: Lymphocytes Absolute Auto 1.10 K/uL (0.90-2.90); Slide Review Reflex No
[2025-05-28 13:21] LABS: Albumin* 4.4 g/dL (3.3-5.0); Chloride* 104 mmol/L (96-114)
[2025-05-28 13:22] LABS: Potassium* 3.8 mmol/L (3.6-5.1); Sodium* 138 mmol/L (135-149)
[2025-05-28 13:25] LABS: Alanine Aminotransferase* 13 U/L (4-35); Alkaline Phosphatase* 50 U/L (40-150); Anion Gap 7 mEq/L (7-15); Aspartate Amino Transferase* 23 U/L (12-35); Bilirubin Direct* 0.0 mg/dL (0.0-0.5); Bilirubin Total* 0.8 mg/dL (0.1-1.5); Blood Urea Nitrogen* 12 mg/dL (5-24); Calcium* 9.2 mg/dL (8.4-10.6); Carbon Dioxide* 27 mmol/L (20-32); Creatinine* 0.7 mg/dL (0.5-1.5); Est. Creatinine Clearance* 90.41; Estimated Glomerular Filt Rate 111 ml/min; Glucose* 115 mg/dL (60-115); Total Protein* 7.5 g/dL (6.0-8.3)
[2025-05-28 13:26] LABS: HCG Qualitative Serum* Negative (Negative)
[2025-05-28] MEDS: TAMSULOSIN HCL 0.4 MG CAPSULE PO (14:40)
--- NOTE | 2025-05-28 15:40 | PC.NURSE ---
sleeping, appears comfortable at rest, remains at bedside
[2025-05-28] MEDS: 0.9 % SODIUM CHLORIDE 500 ML 500 ML IV (16:26)
== END 2025-05-28 18:27 | disposition home or self-care (01) ==
PROVIDERS: Emergency Provider Family Medicine; PCP Family Medicine
DX: N20.0 Calculus of kidney (principal)
CPT/HCPCS: 36415; 74176; 80048; 80076; 81001; 81025; 82150; 83690; 84703; 85025; 86140; 87086; 94761; 96374; 96375; 96376; 99283; 99284; 99285; A9270; J0131; J1171; J2270; J2405; J7030

== ENCOUNTER 2025-05-28 22:55 | Emergency (ER) | payer OTHER, SELFPAY ==
[2025-05-28 23:05] VITALS: BP 124/73; PULSE 85; RESP 18; TEMP 36.7; O2SAT 99
[2025-05-28 23:22] VITALS: O2SAT 99
[2025-05-28] MEDS: ONDANSETRON 2 MG/ML inj 4 MG IVP (23:29)
--- NOTE | 2025-05-28 23:29 | ED.NAVMDI ---
HPI - Nausea/Vomiting/Diarrhea General Date Seen: 05/28/25 <Reinaldo Liu MD - Last Filed: 05/28/25 23:34> Chief complaint: Nausea/Vomiting <Reinaldo Liu MD - Last Filed: 05/28/25 23:34> Stated complaint: kidney stones <Reinaldo Liu MD - Last Filed: 05/28/25 23:34> Time Seen by Provider: 05/28/25 23:05 <Reinaldo Liu MD - Last Filed: 05/28/25 23:34> Source: patient and family <Reinaldo Liu MD - Last Filed: 05/28/25 23:34> Mode of arrival: ambulatory <Reinaldo Liu MD - Last Filed: 05/28/25 23:34> Limitations: no limitations <Reinaldo Liu MD - Last Filed: 05/28/25 23:34> History of Present Illness HPI Narrative: Patient is a very nice 44-year-old female who presents here for the ongoing vomiting. She was seen earlier for renal colic, she she had a distal stone in her right ureter, 3 mm with some hydronephrosis. She did have some vomiting here, she was not sent home with anti vomit medication but since she has come home she has vomited 3 times in retched a couple times since. No blood at all. Is brought back in because of inability to keep her medications down. Her partner is with her said she was also having some rigors, although they did not check temperature. Review of her chart shows the distal right ureter stone, with mild hydronephrosis, 10-25 red cells per high-power field. Her white count was normal here. And no evidence of infection on the urine. <Reinaldo Liu MD - Last Filed: 05/28/25 23:34> MD elicited complaint: vomiting and abdominal pain <Reinaldo Liu MD - Last Filed: 05/28/25 23:34> Associated nausea: Yes <Reinaldo Liu MD - Last Filed: 05/28/25 23:34> Associated abdominal pain: Yes <Reinaldo Liu MD - Last Filed: 05/28/25 23:34> Location of pain: RLQ <Reinaldo Liu MD - Last Filed: 05/28/25 23:34> Exacerbating factors: none <Reinaldo Liu MD - Last Filed: 05/28/25 23:34> Relieving factors: none <Reinaldo Liu MD - Last Filed: 05/28/25 23:34> Associated symptoms: denies other symptoms <Reinaldo Liu MD - Last Filed: 05/28/25 23:34> Related Data Home medications: Home Medications ?Medication ?Instructions ?Recorded ?Confirmed acetaminophen 325 mg tablet 325 - 650 mg PO Q6H PRN pain 03/11/25 05/28/25 amitriptyline 25 mg tablet 25 mg PO QPM 05/28/25 05/28/25 <Reinaldo Liu MD - Last Filed: 05/28/25 23:34> Allergies/Adverse reactions: Allergies Allergy/AdvReac Type Severity Reaction Status Date / Time NSAIDS (Non-Steroidal Allergy Severe Anaphylaxis Verified 05/28/25 23:08 Anti-Inflamma <Reinaldo Liu MD - Last Filed: 05/28/25 23:34> Review of Systems Status of ROS: Reports: 10 or more systems reviewed and unremarkable except as noted in History and below <Reinaldo Liu MD - Last Filed: 05/28/25 23:34> GI: Reports: nausea <Reinaldo Liu MD - Last Filed: 05/28/25 23:34> [facility] Social History: Social History Smoking Status: Never smoker How often do you have a drink containing alcohol: never AUDIT-C Alcohol total score: 0 Non-prescribed substance use: denies use Caffeine: Yes (1c/day) Are you using contraception or practicing any form of control: No service: No <Reinaldo Liu MD - Last Filed: 05/28/25 23:34> Exam Narrative: Exam Narrative: On examination in room 5 she does not seem to be happy, she is alert oriented x3. Chest is good air entry heart sounds are normal her abdomen does not show any tenderness to palpation bowel sounds are normal there is no CVA tenderness she moves all extremities independently well skin reveals no petechiae rashes. <Reinaldo Liu MD - Last Filed: 05/28/25 23:34> Const: Vital Signs, click to edit/add: Vital Signs - 24 hr 05/28/25 23:05 05/28/25 23:22 05/28/25 23:44 Temperature 98.0 F Pulse Rate [Right Pulse Oximeter] 85 Respiratory Rate 18 Blood Pressure [Le ft Upper Arm] 124/73 Pulse Oximetry 99 99 87 L Oxygen Delivery Me thod Room Air Room Air Oxygen Flow Rate 05/28/25 23:45 Temperature Pulse Rate [Right Pulse Oximeter] Respiratory Rate Blood Pressure [Le ft Upper Arm] Pulse Oximetry 98 Oxygen Delivery Me thod Nasal Cannula Oxygen Flow Rate 2 <Reinaldo Liu MD - Last Filed: 05/28/25 23:34> Vital Signs, click to edit/add: Vital Signs - 24 hr 05/28/25 23:05 05/28/25 23:22 05/28/25 23:44 Temperature 98.0 F Pulse Rate [Right Pulse Oximeter] 85 Respiratory Rate 18 Blood Pressure [Le ft Upper Arm] 124/73 Pulse Oximetry 99 99 87 L Oxygen Delivery Me thod Room Air Room Air Oxygen Flow Rate 05/28/25 23:45 Temperature Pulse Rate [Right Pulse Oximeter] Respiratory Rate Blood Pressure [Le ft Upper Arm] Pulse Oximetry 98 Oxygen Delivery Me thod Nasal Cannula Oxygen Flow Rate 2 <Ghulam Billings MD - Last Filed: 05/29/25 00:35> Course Vital Signs Vital signs: Initial Vital Signs Temperature 98.0 F 05/28/25 23:05 Temperature Source Temporal Artery Scan 05/28/25 23:05 Pulse Rate 85 05/28/25 23:05 Respiratory Rate 18 05/28/25 23:05 Blood Pressure 124/73 05/28/25 23:05 Blood Pressure Mean 90 05/28/25 23:05 Blood Pressure Position Supine 05/28/25 23:05 Pulse Oximetry 99 05/28/25 23:05 Oxygen Delivery Method Room Air 05/28/25 23:05 Vital Signs Temperature 98.0 F 05/28/25 23:05 Pulse Rate 85 05/28/25 23:05 Respiratory Rate 18 05/28/25 23:05 Blood Pressure 124/73 05/28/25 23:05 Pulse Oximetry 99 05/28/25 23:05 Oxygen Delivery Method Room Air 05/28/25 23:05 Temperature 98.0 F 05/28/25 23:05 Pulse Rate 85 05/28/25 23:05 Respiratory Rate 18 05/28/25 23:05 Blood Pressure 124/73 05/28/25 23:05 Pulse Oximetry 98 05/28/25 23:45 Oxygen Delivery Method Nasal Cannula 05/28/25 23:45 Oxygen Flow Rate 2 05/28/25 23:45 <Reinaldo Liu MD - Last Filed: 05/28/25 23:34> Initial Vital Signs Temperature 98.0 F 05/28/25 23:05 Temperature Source Temporal Artery Scan 05/28/25 23:05 Pulse Rate 85 05/28/25 23:05 Respiratory Rate 18 05/28/25 23:05 Blood Pressure 124/73 05/28/25 23:05 Blood Pressure Mean 90 05/28/25 23:05 Blood Pressure Position Supine 05/28/25 23:05 Pulse Oximetry 99 05/28/25 23:05 Oxygen Delivery Method Room Air 05/28/25 23:05 Vital Signs Temperature 98.0 F 05/28/25 23:05 Pulse Rate 85 05/28/25 23:05 Respiratory Rate 18 05/28/25 23:05 Blood Pressure 124/73 05/28/25 23:05 Pulse Oximetry 99 05/28/25 23:05 Oxygen Delivery Method Room Air 05/28/25 23:05 Temperature 98.0 F 05/28/25 23:05 Pulse Rate 85 05/28/25 23:05 Respiratory Rate 18 05/28/25 23:05 Blood Pressure 124/73 05/28/25 23:05 Pulse Oximetry 98 05/28/25 23:45 Oxygen Delivery Method Nasal Cannula 05/28/25 23:45 Oxygen Flow Rate 2 05/28/25 23:45 <Ghulam Billings MD - Last Filed: 05/29/25 00:35> Medications Administered Medications: Generic Name Dose Route Start Last Admin Trade Name Freq PRN Reason Stop Dose Admin Hydromorphone HCl 1 mg 05/28/25 23:20 05/28/25 23:29 Hydromorphone 0.5 Mg/0.5 Ml Inj IVP 05/28/25 23:21 1 mg ONCE ONE Administration Acetaminophen 1,000 mg in 100 mls @ 400 mls/hr 05/28/25 23:20 05/28/25 23:51 Acetaminophen Inj IVPB 05/28/25 23:34 Infused ONCE ONE Infusion Ondansetron HCl 4 mg 05/28/25 23:20 05/28/25 23:29 Ondansetron 2 Mg/Ml Inj IVP 05/28/25 23:21 4 mg ONCE ONE Administration <Reinaldo Liu MD - Last Filed: 05/28/25 23:34> Generic Name Dose Route Start Last Admin Trade Name Matilde PRN Reason Stop Dose Admin Hydromorphone HCl 1 mg 05/28/25 23:20 05/28/25 23:29 Hydromorphone 0.5 Mg/0.5 Ml Inj IVP 05/28/25 23:21 1 mg ONCE ONE Administration Acetaminophen 1,000 mg in 100 mls @ 400 mls/hr 05/28/25 23:20 05/28/25 23:51 Acetaminophen Inj IVPB 05/28/25 23:34 Infused ONCE ONE Infusion Ondansetron HCl 4 mg 05/28/25 23:20 05/28/25 23:29 Ondansetron 2 Mg/Ml Inj IVP 05/28/25 23:21 4 mg ONCE ONE Administration <Ghulam Billings MD - Last Filed: 05/29/25 00:35> MDM - Nausea/Vomiting/Diarrhea MDM Narrative Medical decision making narrative: Differential diagnosis includes but is not limited to viral gastroenteritis, drug food poisoning, pyloric stenosis, gastritis, pancreatitis, hepatitis, cholecystitis, appendicitis, bowel obstruction, hyperemesis, cyclic vomiting syndrome, bulimia nervosa, migraine headache, motion sickness and medication side effect. These include the life threatening complications of appendicitis, drug food poisoning and bowel obstruction. I do think this is from reaction of her kidney stone, we will give her L fluid some Dilaudid along with some Zofran, we can always use another antiemetic, I am not going to repeat her blood tests, or urine, his I do think that this is just reflection of her actual condition she was seen earlier. She will be signed over to the oncoming ER physician for further delineation. <Reinaldo Liu MD - Last Filed: 05/28/25 23:34> Differential diagnosis includes but is not limited to viral gastroenteritis, drug food poisoning, pyloric stenosis, gastritis, pancreatitis, hepatitis, cholecystitis, appendicitis, bowel obstruction, hyperemesis, cyclic vomiting syndrome, bulimia nervosa, migraine headache, motion sickness and medication side effect. These include the life threatening complications of appendicitis, drug food poisoning and bowel obstruction. I do think this is from reaction of her kidney stone, we will give her L fluid some Dilaudid along with some Zofran, we can always use another antiemetic, I am not going to repeat her blood tests, or urine, his I do think that this is just reflection of her actual condition she was seen earlier. She will be signed over to the oncoming ER physician for further delineation. Patient seen and examined. She is feeling much better. She would like to go home after hydration. I did make arrangements for 0 DT Zofran in in see meds and she will follow-up with her primary physician. She will continue her current treatment plan as outlined previous. <Ghulam Billings MD - Last Filed: 05/29/25 00:35> Medical Records Attestation: I reviewed the patient's medical records. <Reinaldo Liu MD - Last Filed: 05/28/25 23:34> Discharge Plan Discharge Clinical Impression: Kidney calculi <Reinaldo Liu MD - Last Filed: 05/28/25 23:34> Patient Disposition: Home, Self-Care <Reinaldo Liu MD - Last Filed: 05/28/25 23:34> Condition: Stable <Reinaldo Liu MD - Last Filed: 05/28/25 23:34> Instructions: Kidney Stones (ED) <Reinaldo Liu MD - Last Filed: 05/28/25 23:34> Activity Level: No Restrictions <Reinaldo Liu MD - Last Filed: 05/28/25 23:34> No Restrictions <Ghulam Billings MD - Last Filed: 05/29/25 00:35> Discharge Diet: Regular <Reinaldo Liu MD - Last Filed: 05/28/25 23:34> Regular <Ghulam Billings MD - Last Filed: 05/29/25 00:35> Prescriptions: No Action acetaminophen 325 mg tablet 325 - 650 mg PO Q6H PRN (Reason: pain) amitriptyline 25 mg tablet 25 mg PO QPM <Reinaldo Liu MD - Last Filed: 05/28/25 23:34> Follow Up/Referrals: Sera Richmond MD [Primary Care Provider, Family Practice] <Reinaldo Liu MD - Last Filed: 05/28/25 23:34> Stand Alone Forms: MyHealth Info Instructions <Reinaldo Liu MD - Last Filed: 05/28/25 23:34>
[2025-05-28] MEDS: ACETAMINOPHEN INJ 1,000 MG/100 ML VIAL 400 MG IVPB (23:30)
[2025-05-28 23:44] VITALS: O2SAT 87
[2025-05-28 23:45] VITALS: O2SAT 98
== END 2025-05-29 00:47 | disposition home or self-care (01) ==
PROVIDERS: Emergency Provider Family Medicine; PCP Family Medicine
DX: N20.0 Calculus of kidney (principal)
CPT/HCPCS: 94761; 99283; J0131; J1171; J2405